=== PATIENT | male | born 1985 | race Caucasian/White ===

== ENCOUNTER → 2020-12-31 12:01 | Outpatient (CLI) | payer OTHER, SELFPAY | PROVIDERS: PCP Student in an Organized Health Care Education/Training Program; Visit Provider Nurse Practitioner | DX: S91.109A Unspecified open wound of unspecified toe(s) without damage to nail, initial encounter (principal); X58.XXXA Exposure to other specified factors, initial encounter | CPT/HCPCS: 87070; 87075; 87077; 87147; 87205 ==

== ENCOUNTER → 2020-12-31 12:14 | Outpatient (CLI) | payer OTHER, SELFPAY ==
--- NOTE | 2020-12-31 12:18 | DI.RAD.S_ITS ---
PROCEDURE: XR TOE RT MIN 2V INDICATIONS: R 1st toe wound, r/o osteomyelitis TECHNIQUE: 3 views of the great toe(s) acquired. COMPARISON: None. FINDINGS: Bones: No fractures or dislocations. No suspicious bony lesions. Soft tissues: Soft tissue wound or ulcer at the medial aspect the distal aspect of the great toe. No soft tissue gas. IMPRESSION: Toe wound or ulcer without plain film evidence of osteomyelitis. Dictated by: Alfred Hanna M.D. on 12/31/2020 at 11:57 Approved by: Alfred Hanna M.D. on 12/31/2020 at 11:58
== END ==
PROVIDERS: PCP Student in an Organized Health Care Education/Training Program; Referring Provider Nurse Practitioner; Visit Provider Nurse Practitioner
DX: S91.101A Unspecified open wound of right great toe without damage to nail, initial encounter (principal); X58.XXXA Exposure to other specified factors, initial encounter
CPT/HCPCS: 73660; 87070; 87077; 87147; 87186; 87205

== ENCOUNTER → 2021-01-01 09:47 | Outpatient (CLI) | payer OTHER, SELFPAY ==
[2021-01-01 10:07] LABS: Add Manual Diff / Slide Review NO; Basophils Absolute Auto 100 /uL (0-100); Basophils Percent Auto 0.8 % (0-2); Eosinophils Absolute Auto 300 /uL (0-450); Eosinophils Percent Auto 3.2 % (2-4); Hematocrit 49.4 % (41-53); Lymphocytes Absolute Auto 2200 /uL (1100-4500); Lymphocytes Percent Auto 23.9 % (25-40); Mean Corpuscular HGB Conc 34.5 % (30-36); Mean Corpuscular Hemoglobin 28.4 PG (26-34); Mean Corpuscular Volume 82.4 fL (80-100); Monocytes Absolute Auto 1000 /uL (0-900); Monocytes Percent Auto 11.3 % (3-14); Neutrophils Absolute Auto 5600 /uL (1500-7000); Neutrophils Percent Auto 60.8 % (50-75); Platelet Count 272 X10^3/uL (150-400); Red Blood Cell Count 5.99 X10^6/uL (4.5-5.9); Red Cell Distribution Width 13.9 % (11.6-14.8); White Blood Cell Count 9.2 X10^3/uL (4.5-11.0)
[2021-01-01 10:21] LABS: Alanine Aminotransferase 45 IU/L (<50); Albumin 4.2 g/dL (3.5-5.0); Albumin Globulin Ratio 1.1 (1.0-2.8); Alkaline Phosphatase 102 U/L (38-126); Aspartate Aminotransferase 38 IU/L (17-59); BUN Creatinine Ratio 21.1 (6-22); Bilirubin Total 0.7 mg/dL (0.2-1.3); Blood Urea Nitrogen 12 mg/dL (9-20); C-Reactive Protein Quant 4.3 mg/dL (<1.0); Carbon Dioxide 31 mmol/L (22-32); Chloride 96 mmol/L (98-107); Estimated Glomerular Filt Rate > 60.0 mL/min (>60); Globulin 3.7 g/dL (1.7-4.1); Glucose 437 mg/dL (70-100); HEMOLYSIS 22 (0-50); Potassium 5.2 mmol/L (3.4-5.1); Sodium 132 mmol/L (137-145); Total Protein 7.9 g/dL (6.3-8.2)
[2021-01-01 10:26] LABS: Erythrocyte Sedimentation Rate 3 MM/HR (0-15)
[2021-01-02 09:17] LABS: Hemoglobin A1C% w Est Avg Glu 13.2 % (4.0-6.0)
== END ==
PROVIDERS: PCP Student in an Organized Health Care Education/Training Program; Referring Provider Nurse Practitioner; Visit Provider Nurse Practitioner
DX: S91.109A Unspecified open wound of unspecified toe(s) without damage to nail, initial encounter (principal); R73.9 Hyperglycemia, unspecified
CPT/HCPCS: 36415; 80053; 83036; 84145; 85025; 85651; 86140

== ENCOUNTER → 2021-01-08 15:09 | Outpatient (CLI) | payer OTHER, SELFPAY ==
[2021-01-08 16:20] LABS: Creatinine Urine Random 78.9 mg/dL
[2021-01-08 16:55] LABS: Microalbumi Creatinin Ratio Ur 1036.7 ug/mg CR (<30); Microalbumin Urine Random 81.8 mg/dL (0-1.6)
== END ==
PROVIDERS: PCP Student in an Organized Health Care Education/Training Program; Referring Provider Student in an Organized Health Care Education/Training Program; Visit Provider Student in an Organized Health Care Education/Training Program
DX: E11.9 Type 2 diabetes mellitus without complications (principal)
CPT/HCPCS: 82043; 82570

== ENCOUNTER → 2021-01-09 13:52 | Outpatient (CLI) | payer OTHER, SELFPAY | PROVIDERS: PCP Student in an Organized Health Care Education/Training Program; Referring Provider Nurse Practitioner; Visit Provider Family Medicine | DX: E11.621 Type 2 diabetes mellitus with foot ulcer (principal); L97.511 Non-pressure chronic ulcer of other part of right foot limited to breakdown of skin; E11.65 Type 2 diabetes mellitus with hyperglycemia; E11.40 Type 2 diabetes mellitus with diabetic neuropathy, unspecified; F17.200 Nicotine dependence, unspecified, uncomplicated | CPT/HCPCS: 11042; 99204; 99212 ==

== ENCOUNTER → 2021-01-11 13:27 | Outpatient (CLI) | payer OTHER, SELFPAY | PROVIDERS: PCP Student in an Organized Health Care Education/Training Program; Referring Provider Student in an Organized Health Care Education/Training Program; Visit Provider Family Medicine | DX: E11.621 Type 2 diabetes mellitus with foot ulcer (principal); L97.511 Non-pressure chronic ulcer of other part of right foot limited to breakdown of skin; E11.40 Type 2 diabetes mellitus with diabetic neuropathy, unspecified; F17.200 Nicotine dependence, unspecified, uncomplicated | CPT/HCPCS: 29445 ==

== ENCOUNTER → 2021-01-18 08:48 | Outpatient (CLI) | payer OTHER, SELFPAY | PROVIDERS: PCP Student in an Organized Health Care Education/Training Program; Referring Provider Student in an Organized Health Care Education/Training Program; Visit Provider Family Medicine | DX: E11.621 Type 2 diabetes mellitus with foot ulcer (principal); L97.511 Non-pressure chronic ulcer of other part of right foot limited to breakdown of skin; E11.40 Type 2 diabetes mellitus with diabetic neuropathy, unspecified; F17.200 Nicotine dependence, unspecified, uncomplicated | CPT/HCPCS: 29445 ==

== ENCOUNTER → 2021-01-25 08:55 | Outpatient (CLI) | payer OTHER, SELFPAY | PROVIDERS: PCP Student in an Organized Health Care Education/Training Program; Referring Provider Student in an Organized Health Care Education/Training Program; Visit Provider Family Medicine | DX: E11.621 Type 2 diabetes mellitus with foot ulcer (principal); L97.511 Non-pressure chronic ulcer of other part of right foot limited to breakdown of skin | CPT/HCPCS: 29445 ==

== ENCOUNTER → 2021-02-01 09:30 | Outpatient (CLI) | payer OTHER, SELFPAY | PROVIDERS: PCP Student in an Organized Health Care Education/Training Program; Referring Provider Student in an Organized Health Care Education/Training Program; Visit Provider Family Medicine | DX: Z86.31 Personal history of diabetic foot ulcer (principal); E11.65 Type 2 diabetes mellitus with hyperglycemia; E11.40 Type 2 diabetes mellitus with diabetic neuropathy, unspecified | CPT/HCPCS: 99213 ==

== ENCOUNTER → 2021-02-16 | Outpatient (CLI) | payer OTHER, SELFPAY | PROVIDERS: PCP Student in an Organized Health Care Education/Training Program; Referring Provider Student in an Organized Health Care Education/Training Program; Visit Provider Family Medicine | CPT/HCPCS: 99212 ==

== ENCOUNTER → 2021-02-22 15:06 | Outpatient (CLI) | payer OTHER, SELFPAY | PROVIDERS: PCP Student in an Organized Health Care Education/Training Program; Referring Provider Student in an Organized Health Care Education/Training Program; Visit Provider Nurse Practitioner Family | DX: Z86.32 Personal history of gestational diabetes (principal); E11.40 Type 2 diabetes mellitus with diabetic neuropathy, unspecified | CPT/HCPCS: 99213 ==

== ENCOUNTER → 2021-04-11 06:53 | Outpatient (CLI) | payer OTHER, SELFPAY ==
[2021-04-11 07:56] LABS: Hemoglobin A1C% w Est Avg Glu 10.2 % (4.0-6.0)
[2021-04-11 08:47] LABS: Blood Urea Nitrogen 18 mg/dL (9-20); Estimated Glomerular Filt Rate > 60.0 mL/min (>60)
== END ==
PROVIDERS: PCP Student in an Organized Health Care Education/Training Program; Referring Provider Student in an Organized Health Care Education/Training Program; Visit Provider Student in an Organized Health Care Education/Training Program
DX: E11.29 Type 2 diabetes mellitus with other diabetic kidney complication (principal); R80.9 Proteinuria, unspecified
CPT/HCPCS: 36415; 82565; 83036; 84520

== ENCOUNTER → 2021-08-29 06:53 | Outpatient (CLI) | payer OTHER, SELFPAY ==
[2021-08-29 08:21] LABS: Hemoglobin A1C% w Est Avg Glu 7.1 % (4.0-6.0)
[2021-08-29 08:22] LABS: BUN Creatinine Ratio 24.3 (6-22); Blood Urea Nitrogen 18 mg/dL (9-20); Cholesterol 159 mg/dL (140-199); Estimated Glomerular Filt Rate > 60.0 mL/min (>60); HDL Cholesterol 39 mg/dL (40-60); LDL Cholesterol Calculated 61 mg/dL (<100); Triglycerides 297 mg/dL (35-150)
[2021-08-29 09:22] LABS: Creatinine Urine Random 215.1 mg/dL
[2021-08-29 12:50] LABS: Microalbumi Creatinin Ratio Ur 161.7 ug/mg CR (<30); Microalbumin Urine Random 34.8 mg/dL (0-1.6)
== END ==
PROVIDERS: PCP Student in an Organized Health Care Education/Training Program; Referring Provider Student in an Organized Health Care Education/Training Program; Visit Provider Student in an Organized Health Care Education/Training Program
DX: E11.69 Type 2 diabetes mellitus with other specified complication (principal); E78.5 Hyperlipidemia, unspecified; I10 Essential (primary) hypertension
CPT/HCPCS: 36415; 80061; 82043; 82565; 82570; 83036; 84520

== ENCOUNTER → 2022-03-11 11:12 | Outpatient (CLI) | payer OTHER, SELFPAY ==
[2022-03-11 13:03] LABS: Hemoglobin A1C% w Est Avg Glu 8.3 % (4.0-6.0)
[2022-03-11 13:18] LABS: BUN Creatinine Ratio 19.2 (6-22); Blood Urea Nitrogen 14 mg/dL (9-20); Calcium 8.9 mg/dL (8.4-10.2); Carbon Dioxide 27 mmol/L (22-32); Chloride 103 mmol/L (98-107); Estimated Glomerular Filt Rate > 60 mL/min (>60); Glucose 135 mg/dL (70-100); HEMOLYSIS < 15 (0-50); Sodium 138 mmol/L (137-145)
== END ==
PROVIDERS: PCP Student in an Organized Health Care Education/Training Program; Referring Provider Student in an Organized Health Care Education/Training Program; Visit Provider Student in an Organized Health Care Education/Training Program
DX: E11.29 Type 2 diabetes mellitus with other diabetic kidney complication (principal); R80.9 Proteinuria, unspecified; I10 Essential (primary) hypertension
CPT/HCPCS: 36415; 80048; 83036

== ENCOUNTER → 2022-05-07 08:30 | Outpatient (CLI) | payer OTHER, SELFPAY | LOC: WC 08:32 | PROVIDERS: PCP Student in an Organized Health Care Education/Training Program; Referring Provider Student in an Organized Health Care Education/Training Program; Visit Provider Family Medicine | DX: E11.621 Type 2 diabetes mellitus with foot ulcer (principal); L97.512 Non-pressure chronic ulcer of other part of right foot with fat layer exposed; L84 Corns and callosities; L08.9 Local infection of the skin and subcutaneous tissue, unspecified; E11.40 Type 2 diabetes mellitus with diabetic neuropathy, unspecified; Z79.84 Long term (current) use of oral hypoglycemic drugs; Z72.0 Tobacco use | CPT/HCPCS: 11042; 87070; 87075; 87077; 87186; 87205; 93922; 99214 ==

== ENCOUNTER → 2022-05-14 08:59 | Outpatient (CLI) | payer OTHER, SELFPAY | PROVIDERS: PCP Student in an Organized Health Care Education/Training Program; Referring Provider Student in an Organized Health Care Education/Training Program; Visit Provider Family Medicine | DX: L84 Corns and callosities (principal); E11.40 Type 2 diabetes mellitus with diabetic neuropathy, unspecified; Z86.31 Personal history of diabetic foot ulcer | CPT/HCPCS: 99212; 99213 ==

== ENCOUNTER → 2022-06-07 06:53 | Outpatient (CLI) | payer OTHER, SELFPAY ==
[2022-06-07 08:31] LABS: BUN Creatinine Ratio 22.9 (6-22); Blood Urea Nitrogen 19 mg/dL (9-20); Estimated Glomerular Filt Rate > 60 mL/min (>60)
[2022-06-07 08:48] LABS: Hemoglobin A1C% w Est Avg Glu 7.2 % (4.0-6.0)
[2022-06-07 13:00] LABS: Creatinine Urine Random 197.5 mg/dL; Microalbumin Urine Random 16.2 mg/dL (0-1.6)
== END ==
PROVIDERS: PCP Student in an Organized Health Care Education/Training Program; Referring Provider Student in an Organized Health Care Education/Training Program; Visit Provider Student in an Organized Health Care Education/Training Program
DX: E11.29 Type 2 diabetes mellitus with other diabetic kidney complication (principal); R80.9 Proteinuria, unspecified
CPT/HCPCS: 36415; 82043; 82565; 82570; 83036; 84520

== ENCOUNTER 2022-10-14 15:54 | Emergency (ER) | payer OTHER, SELFPAY ==
[2022-10-14] VITALS (11 sets, daily range): BP systolic 131–142; BP diastolic 64–84; PULSE 77–90; RESP 16; TEMP 36.8; O2SAT 94–98; BMI 39.4
[2022-10-14 16:53] LABS: Add Manual Diff / Slide Review NO; Basophils Absolute Auto 100 /uL (0-100); Basophils Percent Auto 0.9 % (0-2); Eosinophils Absolute Auto 900 /uL (0-450); Eosinophils Percent Auto 5.1 % (2-4); Hematocrit 43.5 % (41-53); Hemoglobin 14.4 g/dL (13.5-17.5); Lymphocytes Absolute Auto 4000 /uL (1100-4500); Lymphocytes Percent Auto 24.1 % (25-40); Mean Corpuscular HGB Conc 33.2 % (30-36); Mean Corpuscular Hemoglobin 27.8 PG (26-34); Mean Corpuscular Volume 83.8 fL (80-100); Monocytes Absolute Auto 1400 /uL (0-900); Monocytes Percent Auto 8.6 % (3-14); Neutrophils Absolute Auto 10300 /uL (1500-7000); Neutrophils Percent Auto 61.3 % (50-75); Platelet Count 376 X10^3/uL (150-400); Red Cell Distribution Width 13.9 % (11.6-14.8); White Blood Cell Count 16.8 X10^3/uL (4.5-11.0)
[2022-10-14 17:03] LABS: Alanine Aminotransferase 29 IU/L (<50); Albumin 4.3 g/dL (3.5-5.0); Albumin Globulin Ratio 1.1 (1.0-2.8); Alkaline Phosphatase 69 U/L (38-126); Aspartate Aminotransferase 23 IU/L (17-59); Bilirubin Total 0.9 mg/dL (0.2-1.3); Blood Urea Nitrogen 18 mg/dL (9-20); Calcium 9.1 mg/dL (8.4-10.2); Carbon Dioxide 25 mmol/L (22-32); Chloride 102 mmol/L (98-107); Estimated Glomerular Filt Rate > 60 mL/min (>60); Globulin 3.8 g/dL (1.7-4.1); Glucose 111 mg/dL (70-100); Lipase 1037 U/L (23-300); Potassium 4.3 mmol/L (3.4-5.1); Sodium 138 mmol/L (137-145); Total Protein 8.1 g/dL (6.3-8.2)
[2022-10-14 17:04] LABS: HEMOLYSIS 51 (0-50)
--- NOTE | 2022-10-14 18:39 | ED.ABDPAIN ---
HPI - Abdominal Pain General Chief Complaint: Abdominal Pain Stated Complaint: ABD pain Time Seen by Provider: 10/14/22 18:38 Source: patient Mode of arrival: Ambulatory History of Present Illness HPI narrative: 36-year-old male daily smoker with type 2 diabetes and hypertension presents with his significant other and a chief complaint of severe epigastric pain for the past few days. He states he was in his normal state of health until Friday evening when he started developing this pain which now radiates to his back. He states it is worse when eating or drinking as well as when he moves. He is had a few episodes of vomiting but displays no role in how he is feeling otherwise. He denies any fever or chills and has had no complaint of any jaundice. He is had no constipation or diarrhea and denies urinary complaints such as dysuria, frequency or urgency. He states he does not drink at all and denies any recent dietary change. Related Data Home Medications Medication Instructions Recorded Confirmed aspirin 81 mg tablet,delayed 81 mg PO DAILY 01/08/21 06/10/22 release Previous Rx's Medication Instructions Recorded blood sugar diagnostic (Blood #100 ea 01/18/21 Glucose Test strips) blood-glucose meter #1 ea 01/18/21 lancets (Comfort Lancets) #100 ea 01/18/21 lisinopril 20 mg tablet 20 mg PO DAILY #90 tabs 03/11/22 atorvastatin 20 mg tablet 20 mg PO BEDTIME #90 tabs 05/06/22 glipizide 10 mg tablet, extended 10 mg PO DAILY #90 tabs 06/10/22 release 24 hr metformin 1,000 mg tablet 1,000 mg PO BID #180 tabs 06/10/22 hydrocodone 5 mg-acetaminophen 325 1 tab PO Q4-6H PRN pain #10 tabs 10/14/22 mg tablet ondansetron 4 mg disintegrating 4 mg PO TID-QID PRN nausea and 10/14/22 tablet vomiting #10 tabs Allergies Allergy/AdvReac Type Severity Reaction Status Date / Time No Known Drug Allergies Allergy Verified 06/10/22 09:13 Review of Systems Review of Systems Narrative: GENERAL: Denies chills, fatigue, malaise, fever, sweats. HEENT: Denies sinus pain, ear pain, sore throat, difficulty swallowing, dizziness. RESPIRATORY: Denies dyspnea, cough, wheezing, hemoptysis, sputum. CARDIOVASCULAR: Denies chest pain, palpitations, orthopnea, edema, GASTROINTESTINAL: See HPI : Denies dysuria, frequency, incontinence, hematuria, urinary retention. MUSCULOSKELETAL: denies weakness, joint pain, or bony pain SKIN: Denies rash, skin lesions, or other NEUROLOGIC: Denies weakness, headache, numbness, change in speech, confusion, seizures, incoordination. PSYCHIATRIC: No concerning psychosocial issues. 12 point review of systems is negative except for those stated above Patient History Social History Smoking Status: Current every day smoker Smoking Status: Current every day smoker Substance Use Type: marijuana Exam Narrative Exam Narrative: GENERAL: [36] year old patient appears stated age. Well-developed patient, in mild distress. HEAD: Atraumatic. Normocephalic. EYES: Pupils equal round and reactive. Extraocular motions intact. No scleral icterus. No injection or drainage. ENT: Nose without bleeding, purulent drainage. Throat without erythema, tonsillar hypertrophy or exudate. Airway patent. NECK: Trachea midline. Non tender CARDIOVASCULAR: Regular rate and rhythm without murmurs, gallops, or rubs. RESPIRATORY: Clear to auscultation. Breath sounds equal bilaterally. No wheezes, rales, or rhonchi. GASTROINTESTINAL: Abdomen soft, tenderness in the epigastrium nondistended. Bowel sounds present in all 4 quadrants EXTREMITIES: No edema or joint tenderness. BACK: Nontender without deformity or crepitance. No flank tenderness. NEURO: AOx3. SKIN: No rash or erythema of visible areas Initial Vital Signs Initial Vital Signs: Vital Signs Temperature 98.2 F 10/14/22 16:19 Pulse Rate 90 10/14/22 16:19 Respiratory Rate 16 10/14/22 16:19 Blood Pressure 134/84 10/14/22 16:19 Pulse Oximetry 98 10/14/22 16:19 Oxygen Delivery Method 10/14/22 16:19 Course Orders Ordered: Discontinued Medications Hydrocodone Bitart/Acetaminophen (Hydrocodone/Acet 5/325 Prepack) 1 bottle MISC SEEINSTR ONE Stop: 10/14/22 21:47 Last Admin: 10/14/22 21:54 Dose: 1 bottle Documented By: JESSE Hydromorphone HCl (Hydromorphone 0.5 Mg Inj) 0.5 mg IV NOW ONE Stop: 10/14/22 20:01 Last Admin: 10/14/22 20:09 Dose: 0.5 mg Documented By: JESSE Sodium Chloride (Normal Saline 0.9%) 1,000 mls @ 1,000 mls/hr IV BOLUS ONE Stop: 10/14/22 19:36 Last Infusion: 10/14/22 20:01 Dose: 0 mls/hr Documented By: Admin: 10/14/22 18:46 Dose: 1,000 mls/hr Documented By: JUSTIN Sodium Chloride (Normal Saline 0.9%) 1,000 mls @ 1,000 mls/hr IV BOLUS ONE Stop: 10/14/22 20:59 Last Infusion: 10/14/22 22:00 Dose: 0 mls/hr Documented By: Admin: 10/14/22 20:08 Dose: 1,000 mls/hr Documented By: JESSE Ondansetron HCl (Ondansetron 4 Mg/2 Ml Inj) 4 mg IV NOW ONE Stop: 10/14/22 20:01 Last Admin: 10/14/22 20:08 Dose: 4 mg Documented By: JESSE Ondansetron HCl (Ondansetron 4 Mg Odt Prepack) 1 bottle MISC SEEINSTR ONE Stop: 10/14/22 21:47 Last Admin: 10/14/22 21:54 Dose: 1 bottle Documented By: JESSE Vital Signs Vital signs: Vital Signs - 8 hr 10/14/22 16:19 10/14/22 18:44 10/14/22 18:45 Temperature 98.2 F Pulse Rate 90 84 87 Respiratory Rate 16 Blood Pressure 134/84 Pulse Oximetry 98 97 97 Oxygen Delivery Method Room Air 10/14/22 18:45 10/14/22 19:00 10/14/22 19:00 Temperature Pulse Rate 78 Respiratory Rate Blood Pressure 136/75 131/69 Pulse Oximetry 96 Oxygen Delivery Method 10/14/22 19:30 10/14/22 19:30 10/14/22 20:00 Temperature Pulse Rate 79 78 Respiratory Rate Blood Pressure 133/68 Pulse Oximetry 95 96 Oxygen Delivery Method 10/14/22 20:01 10/14/22 20:01 10/14/22 20:25 Temperature Pulse Rate 79 Respiratory Rate Blood Pressure 133/76 142/72 H Pulse Oximetry 96 Oxygen Delivery Method 10/14/22 20:25 Temperature Pulse Rate 85 Respiratory Rate Blood Pressure Pulse Oximetry 94 Oxygen Delivery Method MDM - Abdominal Pain Lab Data Result diagrams: 10/14/22 16:36 10/14/22 16:36 Labs: Lab Results 10/14/22 10/14/22 10/14/22 Range/Units 16:36 16:36 18:47 WBC 16.8 H (4.5-11.0) X10^3/uL RBC 5.20 (4.5-5.9) X10^6/uL Hgb 14.4 (13.5-17.5) g/dL Hct 43.5 (41-53) % MCV 83.8 (80-100) fL MCH 27.8 (26-34) PG MCHC 33.2 (30-36) % RDW 13.9 (11.6-14.8) % Plt Count 376 (150-400) X10^3/uL Neut % (Auto) 61.3 (50-75) % Lymph % (Auto) 24.1 L (25-40) % Yates % (Auto) 8.6 (3-14) % Eos % (Auto) 5.1 H (2-4) % Baso % (Auto) 0.9 (0-2) % Neut # (Auto) 32707 H (4022-8893) /uL Lymph # (Auto) 4000 (9774-7856) /uL Yates # (Auto) 1400 H (0-900) /uL Eos # (Auto) 900 H (0-450) /uL Baso # (Auto) 100 (0-100) /uL Sodium 138 (137-145) mmol/L Potassium 4.3 (3.4-5.1) mmol/L Chloride 102 (98-107) mmol/L Carbon Dioxide 25 (22-32) mmol/L BUN 18 (9-20) mg/dL Creatinine 0.60 L (0.66-1.25) mg/dL Estimated GFR > 60 (>60) mL/min BUN/Creatinine Ratio 30.0 H (6-22) Glucose 111 H (70-100) mg/dL Calcium 9.1 (8.4-10.2) mg/dL Total Bilirubin 0.9 (0.2-1.3) mg/dL AST 23 (17-59) IU/L ALT 29 (<50) IU/L Alkaline Phosphatase 69 (38-126) U/L Total Protein 8.1 (6.3-8.2) g/dL Albumin 4.3 (3.5-5.0) g/dL Globulin 3.8 (1.7-4.1) g/dL Albumin/Globulin Ratio 1.1 (1.0-2.8) Lipase 1037 H (23-300) U/L SARS-CoV-2 (PCR) Negative (Negative) MDM Narrative Medical decision making narrative: [36-year-old male with history of diabetes and hyperlipidemia presents with epigastric pain and radiation to his back] Multiple etiologies for patient's symptoms considered including, but not limited to: [Gallbladder disease, pancreatitis, bowel obstruction versus other] Labs reviewed and interpreted by myself: Lipase noted to be significantly elevated, consistent with pancreatitis, otherwise no significant abnormal findings Imaging reviewed: Abdominal ultrasound obtained and limited exam, CT consistent with pancreatitis. No evidence of abscess, pseudocyst or gallbladder disease Patient's symptoms improved over duration of stay with above-stated therapies. Patient's pain is well tolerated and he is tolerating oral hydration Findings and discharge diagnosis discussed with patient/family followed by verbalization of understanding Return precautions discussed with patient/family whom verbalize understanding of diagnosis and plan Discharge Plan Departure Patient Disposition: Home Clinical Impression: Pancreatitis Instructions: DI for Pancreatitis Activity Restrictions/Additional Instructions: *You have been diagnosed with [pancreatitis] *What to do: *Please continue to take your regular medications as directed. [x ] New medication prescriptions sent to your pharmacy: [[facility] [place]] *Please follow up with your primary care provider in 2-3 days, call for an appointment. Let them know you were seen in the Emergency Department and that we ask that you be seen in follow up. We will electronically transmit a record of today's note if your PCP is in our system *Please consider a clear liquid diet for the next 48-72 hours and then slowly advance to regular as tolerated. Also, try to avoid alcohol, nicotine, caffeine, spicy, acidic or fatty foods as this may worsen your symptoms *If you do not have a primary care provider please contact the [facility] Resource line at [phone]. They will ask some questions about your medical history and help get you set up with a doctor in the community. *Return to Emergency Department if you should have any new, worsening or concerning symptoms, such as [fever greater than 101 F, shaking chills, worsening pain, persistent vomiting or other bothersome symptoms] You have been prescribed a short course of narcotic medications. These are potentially dangerous and addictive medications that should be used carefully. While on these medications you cannot drive or operate heavy machinery. Additionally, you cannot sign legal documents or perform any duties such as this. Many people get constipated on narcotic medications so it would be advisable to discuss stool softeners with the pharmacist when you pick pack worker your prescription. Please understand that we cannot provide further refills of narcotics or controlled substances through the ED and your pain management will need to be through your Primary Care Provider Prescriptions: New hydrocodone-acetaminophen 5-325 mg tablet 1 tab PO Q4-6H PRN (Reason: pain) Qty: 10 0RF ondansetron 4 mg tablet,disintegrating 4 mg PO TID-QID PRN (Reason: nausea and vomiting) Qty: 10 0RF No Action (DME) blood-glucose meter Misc See Rx Instructions .ROUTE .MEDSUPPLY Qty: 1 0RF Rx Instructions: Use to check blood sugar at least once daily (DME) Blood Glucose Test Strip See Rx Instructions .ROUTE .MEDSUPPLY Qty: 100 0RF Rx Instructions: Use to check blood sugar at least once daily (DME) lancets [Comfort Lancets] Misc See Rx Instructions .ROUTE .MEDSUPPLY Qty: 100 0RF Rx Instructions: As directed atorvastatin 20 mg tablet 20 mg PO BEDTIME Qty: 90 3RF metformin 1,000 mg tablet 1,000 mg PO BID Qty: 180 1RF Rx Instructions: w/Meals. lisinopril 20 mg tablet 20 mg PO DAILY Qty: 90 3RF glipizide 10 mg tablet extended release 24hr 10 mg PO DAILY Qty: 90 1RF aspirin 81 mg tablet,delayed release (DR/EC) 81 mg PO DAILY Referrals: Tim Tyler MD [Primary Care Provider] - Visit Report Forms: Patient Portal/API
[2022-10-14] MEDS: SODIUM CHLORIDE 0.9% 1,000 ML 1000 ML IV ×2 (18:46→20:08)
[2022-10-14 19:12] LABS: COVID19 -Nasal RAPID Negative (Negative)
--- NOTE | 2022-10-14 19:34 | DI.US.S_ITS ---
PROCEDURE: US ABDOMEN LIMITED INDICATIONS: SEVERE EPIGASTRIC PAIN. LIPASE >1000. TECHNIQUE: Real-time focused scanning was performed of the abdomen, with image documentation. COMPARISON: [facility], CT, CT ABDOMEN PELVIS W CON, 10/14/2022, 20:39. FINDINGS: Liver is enlarged with steatosis. Gallbladder demonstrates no stones. Wall thickness is normal measuring 2.5 mm. IMPRESSION: Hepatomegaly with steatosis. Dictated by: Lorenza Tobar M.D. on 10/14/2022 at 21:10 Approved by: Lorenza Tobar M.D. on 10/14/2022 at 21:10
[2022-10-14] MEDS: ONDANSETRON 4 MG/2 ML INJ IV (20:08)
[2022-10-14] MEDS: HYDROMORPHONE 0.5 MG INJ IV (20:09)
--- NOTE | 2022-10-14 20:27 | DI.CT.S_ITS ---
PROCEDURE: CT ABDOMEN PELVIS W CON INDICATIONS: severe epigastric pain TECHNIQUE: After the administration of IV contrast, axial sections were acquired from the lung bases to the pubic symphysis. Coronal and sagittal reformats were performed. For radiation dose reduction, the following was used: automated exposure control, adjustment of mA and/or kV according to patient size. COMPARISON: [facility], , ABDOMEN LIMITED, 10/14/2022, 20:13. FINDINGS: Image quality: Excellent. Lung bases: Unremarkable. Heart: No significant findings. ABDOMEN: Liver: Liver is enlarged measuring 22.7 cm with diffuse steatosis. Gallbladder: Unremarkable. Biliary ducts: Unremarkable. Pancreas: There is a slight appearance of peripancreatic edema. No ductal dilation. There is homogeneous pancreatic enhancement. No localized fluid collection. Spleen: Unremarkable. Adrenal Glands: Unremarkable. Kidneys and Ureters: Unremarkable. Stomach and Bowel: Stomach, small bowel loops, and colon are unremarkable. Peritoneum: No abnormal intraperitoneal fluid. No free air. Ventral Wall: No hernia. Abdominal Nodes: No retroperitoneal or mesenteric adenopathy by size criteria. Vessels: Aorta and inferior vena cava are normal in size. PELVIS: Pelvic Organs: Unremarkable. Bladder: Unremarkable. Pelvic Nodes: No enlarged lymph nodes. Miscellaneous: Bilateral fat containing inguinal hernias are present. Bones: Unremarkable. IMPRESSION: Mild appearance of peripancreatic inflammatory change suggestive of pancreatitis. No ductal dilation or evidence of necrotizing pancreatitis. No focal fluid collection. Recommend correlation with laboratory enzyme levels. Dictated by: Lorenza Tobar M.D. on 10/14/2022 at 21:08 Approved by: Lorenza Tobar M.D. on 10/14/2022 at 21:10
[2022-10-14] MEDS: ONDANSETRON 4 MG ODT PREPACK 1 BOTTLE MISC (21:54)
[2022-10-14] MEDS: HYDROCODONE/ACET 5/325 PREPACK 1 BOTTLE MISC (21:54)
== END 2022-10-14 22:04 | disposition home or self-care (01) ==
PROVIDERS: Emergency Medicine; Emergency Provider Emergency Medicine; PCP Student in an Organized Health Care Education/Training Program
DX: K85.90 Acute pancreatitis without necrosis or infection, unspecified (principal); R10.13 Epigastric pain; Z79.899 Other long term (current) drug therapy; Z20.822 Contact with and (suspected) exposure to COVID-19
CPT/HCPCS: 36415; 74177; 76705; 80053; 83690; 85025; 87635; 93005; 96361; 96374; 96375; 99284; C9803; J1170; J2405; Q9967

== ENCOUNTER → 2022-12-19 16:02 | Outpatient (CLI) | payer OTHER, SELFPAY ==
[2022-12-19 16:42] LABS: Cholesterol 151 mg/dL (140-199); HDL Cholesterol 36 mg/dL (40-60); Hemoglobin A1C% w Est Avg Glu 7.5 % (4.0-6.0); LDL Cholesterol Calculated 48 mg/dL (<100); Triglycerides 336 mg/dL (35-150)
[2022-12-19 17:12] LABS: Creatinine Urine Random 185.9 mg/dL
[2022-12-19 17:17] LABS: Microalbumi Creatinin Ratio Ur 87.1 ug/mg CR (<30); Microalbumin Urine Random 16.2 mg/dL (0-1.6)
== END ==
PROVIDERS: PCP Student in an Organized Health Care Education/Training Program; Referring Provider Student in an Organized Health Care Education/Training Program; Visit Provider Student in an Organized Health Care Education/Training Program
DX: E11.29 Type 2 diabetes mellitus with other diabetic kidney complication (principal); E11.69 Type 2 diabetes mellitus with other specified complication; E78.5 Hyperlipidemia, unspecified; I10 Essential (primary) hypertension; R80.9 Proteinuria, unspecified
CPT/HCPCS: 36415; 80061; 82043; 82570; 83036

== ENCOUNTER 2023-08-20 18:39 | Emergency (ER) | payer OTHER, SELFPAY ==
[2023-08-20 18:44] VITALS: BP 146/89; PULSE 93; RESP 16; TEMP 36.4; O2SAT 97; BMI 37.5
--- NOTE | 2023-08-20 18:50 | ED.GENADULT ---
HPI - General Adult General Chief complaint: Skin/Abscess/Foreign Body Stated complaint: Great toe Right infection Time Seen by Provider: 08/20/23 18:45 Source: patient Mode of arrival: Ambulatory Limitations: no limitations History of Present Illness HPI narrative: Patient is a 37-year-old male. Is a [id number] diabetic. History of hypertension. Is here for evaluation of a wound on his right great toe. He states he has had this wound in the past. It was a couple years ago. He was seen by wound care. Was on antibiotics. The wound seemed to improve. Over the past several weeks if not slightly longer the wound has started to return. Last evening it was stepped on by a family member and since that time he is had quite a bit of discomfort. He denies any fevers. Related Data Home Medications Medication Instructions Recorded Confirmed aspirin 81 mg tablet,delayed 81 mg PO DAILY 01/08/21 05/09/23 release Previous Rx's Medication Instructions Recorded blood sugar diagnostic (Blood #100 ea 01/18/21 Glucose Test strips) blood-glucose meter #1 ea 01/18/21 lancets (Comfort Lancets) #100 ea 01/18/21 lisinopril 20 mg tablet 20 mg PO DAILY #90 tabs 03/14/23 atorvastatin 20 mg tablet 20 mg PO BEDTIME #90 tabs 05/20/23 metformin 1,000 mg tablet 1,000 mg PO BID #180 tabs 06/18/23 glipizide 10 mg tablet, extended 10 mg PO DAILY #90 tabs 07/08/23 release 24 hr ciprofloxacin HCl 500 mg tablet 500 mg PO Q12H 10 days #20 tabs 08/20/23 (Cipro) Allergies Allergy/AdvReac Type Severity Reaction Status Date / Time No Known Drug Allergies Allergy Verified 05/09/23 16:34 Review of Systems Constitutional Constitutional: Reports system reviewed and no additional complaints, except as documented Musculoskeletal Musculoskeletal: Reports system reviewed and no additional complaints, except as documented Integumentary/Breasts Skin/Breast: Reports system reviewed and no additional complaints, except as documented Neurologic Neurologic: Reports system reviewed and no additional complaints, except as documented Hematologic/Lymphatic On Anticoagulants: No Patient History Medical History (Updated 08/20/23 @ 20:00 by Leo Gil DO) Hyperlipidemia associated with type 2 diabetes mellitus Type 2 diabetes mellitus Essential hypertension Morbid obesity (03/29/03) Attention deficit disorder with hyperactivity (03/29/03) Social History Smoking Status: Current every day smoker Smoking Status: Current every day smoker Substance Use Type: marijuana Exam Initial Vital Signs Initial Vital Signs: Vital Signs Temperature 97.6 F 08/20/23 18:44 Pulse Rate 93 H 08/20/23 18:44 Respiratory Rate 16 08/20/23 18:44 Blood Pressure 146/89 H 08/20/23 18:44 Pulse Oximetry 97 08/20/23 18:44 Oxygen Delivery Method Room Air 08/20/23 18:44 [facility] Head: normal to inspection and normocephalic Cardio Pulses: dorsalis pedis present on the right Skin Other: Patient with a 2 cm x 2 cm ulceration with another 0.5 cm area of skin breakdown on the plantar aspect of the right great toe in between the MTP joint and IP joint. There is some purulent drainage. There is a small amount of surrounding erythema. There was no bone exposure but the ulceration is through the skin into the subcutaneous tissue. Does have a foul smell to it. Neuro Other: Some decreased sensation to light touch Extrem Other: Ulceration plantar aspect of right great toe Course Orders Ordered: ED Orders 08/20/23 18:49 Wound Culture and Gram Stain Stat 08/20/23 18:50 XR foot RT min 3V Stat 08/20/23 19:10 Basic Metabolic Panel Stat C-Reactive Protein Quant Stat Complete Blood Count AUTO DIFF Stat Erythrocyte Sedimentation Rate Stat Lactate (Lactic Acid) Stat Procalcitonin Stat Discontinued Medications Ciprofloxacin (Ciprofloxacin 250 Mg Tablet) 500 mg PO NOW ONE Stop: 08/20/23 19:59 Last Admin: 08/20/23 20:02 Dose: 500 mg Documented By: DAWNA Vital Signs Vital signs: Vital Signs - 8 hr 08/20/23 18:44 08/20/23 20:05 Temperature 97.6 F Pulse Rate 93 H 90 Respiratory Rate 16 18 Blood Pressure 146/89 H 163/80 H Pulse Oximetry 97 98 Oxygen Delivery Method Room Air Medical Decision Making Lab Data Lab results reviewed: Yes I reviewed the patient's lab results. 08/20/23 19:10 08/20/23 19:10 Labs: Lab Results 08/20/23 Range/Units 19:10 WBC 14.4 H (4.5-11.0) X10^3/uL RBC 5.41 (4.5-5.9) X10^6/uL Hgb 14.7 (13.5-17.5) g/dL Hct 43.7 (41-53) % MCV 80.7 (80-100) fL MCH 27.1 (26-34) PG MCHC 33.6 (30-36) % RDW 15.0 H (11.6-14.8) % Plt Count 406 H (150-400) X10^3/uL Neut % (Auto) 69.1 (50-75) % Lymph % (Auto) 15.9 L (25-40) % [place] % (Auto) 9.8 (3-14) % Eos % (Auto) 4.5 H (2-4) % Baso % (Auto) 0.7 (0-2) % Neut # (Auto) 9900 H (3985-7988) /uL Lymph # (Auto) 2300 (1202-4670) /uL [place] # (Auto) 1400 H (0-900) /uL Eos # (Auto) 600 H (0-450) /uL Baso # (Auto) 100 (0-100) /uL ESR 1 (0-15) MM/HR Sodium 136 L (137-145) mmol/L Potassium 4.7 (3.4-5.1) mmol/L Chloride 102 (98-107) mmol/L Carbon Dioxide 28 (22-32) mmol/L BUN 21 H (9-20) mg/dL Creatinine 0.64 L (0.66-1.25) mg/dL Estimated GFR > 60 (>60) mL/min BUN/Creatinine Ratio 32.8 H (6-22) Glucose 156 H (70-100) mg/dL Lactate 1.4 (0.7-2.1) mmol/L Calcium 9.7 (8.4-10.2) mg/dL C-Reactive Protein 1.8 H (<1.0) mg/dL Procalcitonin 0.05 (<0.5) ng/mL Imaging Data Extremity x-ray #1: Radiologist's Impression: PROCEDURE: XR FOOT RT MIN 3V INDICATIONS: great toe ulceration TECHNIQUE: 3 views of the foot were acquired. COMPARISON: None. FINDINGS: Bones: No fractures or dislocations. There is a somewhat irregular appearance of the distal 1st phalanx with sclerosis at the tuft. There is a somewhat truncated irregular appearance of the distal most aspect of the tuft. Small focus of lucency are also noted, scattered within the distal phalanx. Soft tissues: No tibiotalar joint effusion. Achilles tendon appears normal. 1st digit soft tissue prominence is present. IMPRESSION: Sclerosis and lucency within the distal 1st phalanx suggestive of osteomyelitis. [facility] Narrative Medical decision making narrative: Patient has an ulceration of his right great toe that obviously has not developed over the past couple days. It is clearly been there for several weeks. It appears that he has had this issue in the past potentially many years ago that maybe has improved but is now worsening. X-ray and labs do suggest an infection. Potentially osteomyelitis. He overall appears well. Is afebrile. Is tolerating oral intake. A culture was obtained however I do feel that we should start him on antibiotics prior to the culture resulting. He understands that we may need to change these depending on the results of this. Will cover with Cipro. Given 1st dose here in the ER and a prescription was sent to the pharmacy of his choice. He was also given information for follow-up with Podiatry. Referral was also sent to wound care. Patient and his for informed to contact his primary doctor for a follow-up. He was given strict return precautions. He expressed understanding and agreement. Discharge Plan Departure Patient Disposition: Home Clinical Impression: Diabetic toe ulcer Instructions: DI for Diabetic Foot Ulcer Activity Restrictions/Additional Instructions: I do recommend that you start taking the antibiotics as directed. A wound culture was pending at the time of your discharge and we will contact you if we need to change any antibiotics. Tomorrow recommend you contact the Wound Care, your primary doctor and the central office associate at the number provided below for a follow-up. Return to the emergency department for new or worsening symptoms. Prescriptions: New ciprofloxacin HCl [Cipro] 500 mg tablet 500 mg PO Q12H 10 Days Qty: 20 0RF No Action (DME) blood-glucose meter Misc See Rx Instructions .ROUTE .MEDSUPPLY Qty: 1 0RF Rx Instructions: Use to check blood sugar at least once daily (DME) Blood Glucose Test Strip See Rx Instructions .ROUTE .MEDSUPPLY Qty: 100 0RF Rx Instructions: Use to check blood sugar at least once daily (DME) lancets [Comfort Lancets] Misc See Rx Instructions .ROUTE .MEDSUPPLY Qty: 100 0RF Rx Instructions: As directed lisinopril 20 mg tablet 20 mg PO DAILY Qty: 90 3RF atorvastatin 20 mg tablet 20 mg PO BEDTIME Qty: 90 1RF metformin 1,000 mg tablet 1,000 mg PO BID Qty: 180 1RF Rx Instructions: w/Meals. glipizide 10 mg tablet extended release 24hr 10 mg PO DAILY Qty: 90 1RF aspirin 81 mg tablet,delayed release (DR/EC) 81 mg PO DAILY Referrals: Tim Tyler MD [Primary Care Provider] - Heide Reza DPM [Physician] - Stand Alone Forms: Patient Portal/API, Work Release Note
[2023-08-20 19:23] LABS: Add Manual Diff / Slide Review NO; Basophils Absolute Auto 100 /uL (0-100); Basophils Percent Auto 0.7 % (0-2); Eosinophils Absolute Auto 600 /uL (0-450); Eosinophils Percent Auto 4.5 % (2-4); Hematocrit 43.7 % (41-53); Hemoglobin 14.7 g/dL (13.5-17.5); Lymphocytes Absolute Auto 2300 /uL (1100-4500); Lymphocytes Percent Auto 15.9 % (25-40); Mean Corpuscular HGB Conc 33.6 % (30-36); Mean Corpuscular Hemoglobin 27.1 PG (26-34); Mean Corpuscular Volume 80.7 fL (80-100); Monocytes Absolute Auto 1400 /uL (0-900); Monocytes Percent Auto 9.8 % (3-14); Neutrophils Absolute Auto 9900 /uL (1500-7000); Neutrophils Percent Auto 69.1 % (50-75); Platelet Count 406 X10^3/uL (150-400); Red Blood Cell Count 5.41 X10^6/uL (4.5-5.9); White Blood Cell Count 14.4 X10^3/uL (4.5-11.0)
[2023-08-20 19:31] LABS: Lactate (Lactic Acid) 1.4 mmol/L (0.7-2.1)
[2023-08-20 19:34] LABS: BUN Creatinine Ratio 32.8 (6-22); Blood Urea Nitrogen 21 mg/dL (9-20); C-Reactive Protein Quant 1.8 mg/dL (<1.0); Calcium 9.7 mg/dL (8.4-10.2); Carbon Dioxide 28 mmol/L (22-32); Chloride 102 mmol/L (98-107); Estimated Glomerular Filt Rate > 60 mL/min (>60); Glucose 156 mg/dL (70-100); Potassium 4.7 mmol/L (3.4-5.1); Sodium 136 mmol/L (137-145)
[2023-08-20 19:36] LABS: HEMOLYSIS 62 (0-50)
[2023-08-20 19:48] LABS: Procalcitonin 0.05 ng/mL (<0.5)
[2023-08-20] MEDS: CIPROFLOXACIN 250 MG TABLET 500 MG PO (20:02)
[2023-08-20 20:05] VITALS: BP 163/80; PULSE 90; RESP 18; O2SAT 98
[2023-08-20 20:12] LABS: Erythrocyte Sedimentation Rate 1 MM/HR (0-15)
== END 2023-08-20 20:09 | disposition home or self-care (01) ==
PROVIDERS: Emergency Provider Emergency Medicine; PCP Student in an Organized Health Care Education/Training Program
DX: E11.621 Type 2 diabetes mellitus with foot ulcer (principal); L97.519 Non-pressure chronic ulcer of other part of right foot with unspecified severity; Z79.899 Other long term (current) drug therapy
CPT/HCPCS: 73630; 80048; 83605; 84145; 85025; 85651; 86140; 87070; 87075; 87077; 87147; 87186; 87205; 99283; 99284

== ENCOUNTER → 2023-09-08 10:38 | Outpatient (CLI) | payer OTHER, SELFPAY | PROVIDERS: PCP Student in an Organized Health Care Education/Training Program; Referring Provider Emergency Medicine; Visit Provider Surgery | DX: E11.69 Type 2 diabetes mellitus with other specified complication (principal); E11.29 Type 2 diabetes mellitus with other diabetic kidney complication; E78.5 Hyperlipidemia, unspecified; R80.9 Proteinuria, unspecified; E11.621 Type 2 diabetes mellitus with foot ulcer; L97.514 Non-pressure chronic ulcer of other part of right foot with necrosis of bone; E11.42 Type 2 diabetes mellitus with diabetic polyneuropathy; M86.171 Other acute osteomyelitis, right ankle and foot; I10 Essential (primary) hypertension | CPT/HCPCS: 11044; 36415; 80048; 82043; 82570; 83036; 99214 ==

== ENCOUNTER → 2023-09-08 11:57 | Outpatient (CLI) | payer OTHER, SELFPAY ==
[2023-09-08 13:27] LABS: Hemoglobin A1C% w Est Avg Glu 7.8 % (4.0-6.0)
[2023-09-08 13:49] LABS: BUN Creatinine Ratio 23.2 (6-22); Blood Urea Nitrogen 16 mg/dL (9-20); Carbon Dioxide 26 mmol/L (22-32); Chloride 102 mmol/L (98-107); Estimated Glomerular Filt Rate > 60 mL/min (>60); Glucose 105 mg/dL (70-100); HEMOLYSIS < 15 (0-50); Potassium 4.7 mmol/L (3.4-5.1); Sodium 138 mmol/L (137-145)
[2023-09-08 16:42] LABS: Creatinine Urine Random 112.8 mg/dL
[2023-09-08 16:56] LABS: Microalbumi Creatinin Ratio Ur 175.5 ug/mg CR (<30); Microalbumin Urine Random 19.8 mg/dL (0-1.6)
== END ==
PROVIDERS: PCP Pediatrics; Referring Provider Pediatrics; Visit Provider Pediatrics
DX: R80.9 Proteinuria, unspecified (principal); E11.69 Type 2 diabetes mellitus with other specified complication; E78.5 Hyperlipidemia, unspecified; E11.29 Type 2 diabetes mellitus with other diabetic kidney complication
CPT/HCPCS: 36415; 80048; 82043; 82570; 83036

== ENCOUNTER → 2023-09-15 14:09 | Outpatient (CLI) | payer OTHER, SELFPAY | PROVIDERS: PCP Family Medicine; Referring Provider Emergency Medicine; Visit Provider Physician Assistant | DX: L97.514 Non-pressure chronic ulcer of other part of right foot with necrosis of bone (principal); E11.621 Type 2 diabetes mellitus with foot ulcer; E11.42 Type 2 diabetes mellitus with diabetic polyneuropathy; M86.171 Other acute osteomyelitis, right ankle and foot | CPT/HCPCS: 11042; 99213; 99214 ==

== ENCOUNTER → 2023-09-23 09:17 | Outpatient (CLI) | payer OTHER, SELFPAY | LOC: WC 09:17 | PROVIDERS: PCP Family Medicine; Referring Provider Emergency Medicine; Visit Provider Surgery | DX: L97.514 Non-pressure chronic ulcer of other part of right foot with necrosis of bone (principal); E11.621 Type 2 diabetes mellitus with foot ulcer; R60.0 Localized edema; L84 Corns and callosities | CPT/HCPCS: 11042 ==

== ENCOUNTER → 2023-09-26 08:59 | Outpatient (CLI) | payer OTHER, SELFPAY ==
[2023-09-26 10:42] LABS: Creatine Kinase 393 U/L (55-170)
== END ==
PROVIDERS: PCP Family Medicine; Referring Provider Internal Medicine Infectious Disease; Visit Provider Internal Medicine Infectious Disease
DX: M86.9 Osteomyelitis, unspecified (principal)
CPT/HCPCS: 36415; 82550

== ENCOUNTER → 2023-09-30 09:01 | Outpatient (CLI) | payer OTHER, SELFPAY | PROVIDERS: PCP Family Medicine; Referring Provider Emergency Medicine; Visit Provider Surgery | DX: E11.621 Type 2 diabetes mellitus with foot ulcer (principal); L97.514 Non-pressure chronic ulcer of other part of right foot with necrosis of bone; L84 Corns and callosities; R60.0 Localized edema; I10 Essential (primary) hypertension; E78.5 Hyperlipidemia, unspecified | CPT/HCPCS: 11042 ==

== ENCOUNTER → 2023-10-07 09:03 | Outpatient (CLI) | payer OTHER, SELFPAY | LOC: WC 09:04 | PROVIDERS: PCP Family Medicine; Referring Provider Emergency Medicine; Visit Provider Surgery | DX: L97.514 Non-pressure chronic ulcer of other part of right foot with necrosis of bone (principal); E11.621 Type 2 diabetes mellitus with foot ulcer; R60.0 Localized edema; L84 Corns and callosities | CPT/HCPCS: 11042; 99213 ==

== ENCOUNTER → 2023-10-21 09:31 | Outpatient (CLI) | payer OTHER, SELFPAY | LOC: WC 09:32 | PROVIDERS: PCP Family Medicine; Referring Provider Emergency Medicine; Visit Provider Surgery | DX: E11.621 Type 2 diabetes mellitus with foot ulcer (principal); E11.42 Type 2 diabetes mellitus with diabetic polyneuropathy; L97.512 Non-pressure chronic ulcer of other part of right foot with fat layer exposed; L84 Corns and callosities; R60.0 Localized edema; Z79.899 Other long term (current) drug therapy; F17.210 Nicotine dependence, cigarettes, uncomplicated | CPT/HCPCS: 11042 ==

== ENCOUNTER → 2023-10-28 08:37 | Outpatient (CLI) | payer OTHER, SELFPAY | LOC: WC 08:38 | PROVIDERS: PCP Family Medicine; Referring Provider Emergency Medicine; Visit Provider Surgery | DX: E11.621 Type 2 diabetes mellitus with foot ulcer (principal); L97.512 Non-pressure chronic ulcer of other part of right foot with fat layer exposed; L84 Corns and callosities; R60.0 Localized edema; E11.69 Type 2 diabetes mellitus with other specified complication; M86.171 Other acute osteomyelitis, right ankle and foot; E11.40 Type 2 diabetes mellitus with diabetic neuropathy, unspecified; I10 Essential (primary) hypertension; E78.5 Hyperlipidemia, unspecified; F17.210 Nicotine dependence, cigarettes, uncomplicated; E66.01 Morbid (severe) obesity due to excess calories; Z68.38 Body mass index [BMI] 38.0-38.9, adult; Z79.2 Long term (current) use of antibiotics; Z91.199 Patient's noncompliance with other medical treatment and regimen due to unspecified reason | CPT/HCPCS: 11042 ==

== ENCOUNTER → 2023-11-13 14:33 | Outpatient (CLI) | payer OTHER, SELFPAY | LOC: WC 14:33 | PROVIDERS: PCP Family Medicine; Referring Provider Family Medicine; Visit Provider Surgery | DX: E11.621 Type 2 diabetes mellitus with foot ulcer (principal); L97.516 Non-pressure chronic ulcer of other part of right foot with bone involvement without evidence of necrosis; L84 Corns and callosities; E11.42 Type 2 diabetes mellitus with diabetic polyneuropathy; M86.171 Other acute osteomyelitis, right ankle and foot; R60.0 Localized edema; F17.210 Nicotine dependence, cigarettes, uncomplicated; Z91.199 Patient's noncompliance with other medical treatment and regimen due to unspecified reason | CPT/HCPCS: 11042; 99212 ==

== ENCOUNTER → 2023-11-18 08:51 | Outpatient (CLI) | payer OTHER, SELFPAY | LOC: WC 08:52 | PROVIDERS: PCP Family Medicine; Referring Provider Emergency Medicine; Visit Provider Surgery | DX: E11.621 Type 2 diabetes mellitus with foot ulcer (principal); E11.42 Type 2 diabetes mellitus with diabetic polyneuropathy; L97.516 Non-pressure chronic ulcer of other part of right foot with bone involvement without evidence of necrosis; L84 Corns and callosities; R60.0 Localized edema; F17.210 Nicotine dependence, cigarettes, uncomplicated; Z91.199 Patient's noncompliance with other medical treatment and regimen due to unspecified reason; Z79.2 Long term (current) use of antibiotics | CPT/HCPCS: 11042 ==

== ENCOUNTER → 2023-11-25 09:56 | Outpatient (CLI) | payer OTHER, SELFPAY | LOC: WC 09:57 | PROVIDERS: PCP Family Medicine; Referring Provider Emergency Medicine; Visit Provider Surgery | DX: E11.621 Type 2 diabetes mellitus with foot ulcer (principal); L97.516 Non-pressure chronic ulcer of other part of right foot with bone involvement without evidence of necrosis; L84 Corns and callosities; R60.0 Localized edema; E11.42 Type 2 diabetes mellitus with diabetic polyneuropathy; F17.210 Nicotine dependence, cigarettes, uncomplicated; Z91.199 Patient's noncompliance with other medical treatment and regimen due to unspecified reason | CPT/HCPCS: 11042 ==

== ENCOUNTER → 2023-12-02 08:51 | Outpatient (CLI) | payer OTHER, SELFPAY | PROVIDERS: PCP Family Medicine; Referring Provider Emergency Medicine; Visit Provider Surgery | DX: E11.621 Type 2 diabetes mellitus with foot ulcer (principal); L97.516 Non-pressure chronic ulcer of other part of right foot with bone involvement without evidence of necrosis; L84 Corns and callosities; R60.0 Localized edema; E11.69 Type 2 diabetes mellitus with other specified complication; M86.171 Other acute osteomyelitis, right ankle and foot; E11.40 Type 2 diabetes mellitus with diabetic neuropathy, unspecified; I10 Essential (primary) hypertension; E66.01 Morbid (severe) obesity due to excess calories; Z68.38 Body mass index [BMI] 38.0-38.9, adult; F17.210 Nicotine dependence, cigarettes, uncomplicated; Z91.199 Patient's noncompliance with other medical treatment and regimen due to unspecified reason | CPT/HCPCS: 11042 ==

== ENCOUNTER → 2023-12-08 09:19 | Outpatient (CLI) | payer OTHER, SELFPAY | LOC: WC 09:20 | PROVIDERS: PCP Family Medicine; Referring Provider Family Medicine; Visit Provider Surgery | DX: E11.621 Type 2 diabetes mellitus with foot ulcer (principal); E11.42 Type 2 diabetes mellitus with diabetic polyneuropathy; L97.516 Non-pressure chronic ulcer of other part of right foot with bone involvement without evidence of necrosis; R60.0 Localized edema; L84 Corns and callosities; F17.210 Nicotine dependence, cigarettes, uncomplicated; Z91.199 Patient's noncompliance with other medical treatment and regimen due to unspecified reason; Z79.2 Long term (current) use of antibiotics | CPT/HCPCS: 11042 ==

== ENCOUNTER → 2023-12-13 07:55 | Outpatient (CLI) | payer OTHER, SELFPAY ==
[2023-12-13 08:45] LABS: Hemoglobin A1C% w Est Avg Glu 7.1 % (4.0-6.0)
[2023-12-13 08:48] LABS: Creatine Kinase 492 U/L (55-170)
== END ==
PROVIDERS: PCP Family Medicine; Referring Provider Internal Medicine Infectious Disease; Visit Provider Internal Medicine Infectious Disease
DX: E11.9 Type 2 diabetes mellitus without complications (principal)
CPT/HCPCS: 36415; 82550; 83036

== ENCOUNTER → 2023-12-16 09:58 | Outpatient (CLI) | payer OTHER, SELFPAY | LOC: WC 10:00 | PROVIDERS: PCP Family Medicine; Referring Provider Emergency Medicine; Visit Provider Surgery | DX: E11.621 Type 2 diabetes mellitus with foot ulcer (principal); L97.516 Non-pressure chronic ulcer of other part of right foot with bone involvement without evidence of necrosis; L84 Corns and callosities; E11.42 Type 2 diabetes mellitus with diabetic polyneuropathy; M86.171 Other acute osteomyelitis, right ankle and foot; R60.0 Localized edema; F17.210 Nicotine dependence, cigarettes, uncomplicated; Z91.199 Patient's noncompliance with other medical treatment and regimen due to unspecified reason | CPT/HCPCS: 11042 ==

== ENCOUNTER → 2023-12-24 09:44 | Outpatient (CLI) | payer OTHER, SELFPAY | LOC: WC 10:04 | PROVIDERS: PCP Family Medicine; Referring Provider Emergency Medicine; Visit Provider Nurse Practitioner Family | DX: E11.621 Type 2 diabetes mellitus with foot ulcer (principal); E11.42 Type 2 diabetes mellitus with diabetic polyneuropathy; L97.516 Non-pressure chronic ulcer of other part of right foot with bone involvement without evidence of necrosis; M86.171 Other acute osteomyelitis, right ankle and foot; L84 Corns and callosities; F17.210 Nicotine dependence, cigarettes, uncomplicated; Z91.199 Patient's noncompliance with other medical treatment and regimen due to unspecified reason | CPT/HCPCS: 11042; 99213; 99214 ==

== ENCOUNTER → 2023-12-30 08:52 | Outpatient (CLI) | payer OTHER, SELFPAY | LOC: WC 08:52 | PROVIDERS: PCP Family Medicine; Referring Provider Emergency Medicine; Visit Provider Surgery | DX: E11.621 Type 2 diabetes mellitus with foot ulcer (principal); L97.516 Non-pressure chronic ulcer of other part of right foot with bone involvement without evidence of necrosis; L84 Corns and callosities; E11.42 Type 2 diabetes mellitus with diabetic polyneuropathy; M86.171 Other acute osteomyelitis, right ankle and foot; Z91.199 Patient's noncompliance with other medical treatment and regimen due to unspecified reason; F17.210 Nicotine dependence, cigarettes, uncomplicated | CPT/HCPCS: 11042 ==

== ENCOUNTER → 2024-01-06 08:39 | Outpatient (CLI) | payer OTHER, SELFPAY | PROVIDERS: PCP Family Medicine; Referring Provider Emergency Medicine; Visit Provider Surgery | DX: E11.621 Type 2 diabetes mellitus with foot ulcer (principal); L97.516 Non-pressure chronic ulcer of other part of right foot with bone involvement without evidence of necrosis; E11.42 Type 2 diabetes mellitus with diabetic polyneuropathy; L84 Corns and callosities; M86.171 Other acute osteomyelitis, right ankle and foot; F17.210 Nicotine dependence, cigarettes, uncomplicated; R60.0 Localized edema | CPT/HCPCS: 11042; 99213 ==

== ENCOUNTER → 2024-01-13 09:27 | Outpatient (CLI) | payer OTHER, SELFPAY | LOC: WC 09:31 | PROVIDERS: PCP Family Medicine; Referring Provider Emergency Medicine; Visit Provider Surgery | DX: E11.621 Type 2 diabetes mellitus with foot ulcer (principal); L97.516 Non-pressure chronic ulcer of other part of right foot with bone involvement without evidence of necrosis; E11.42 Type 2 diabetes mellitus with diabetic polyneuropathy; R60.0 Localized edema; L84 Corns and callosities; F17.210 Nicotine dependence, cigarettes, uncomplicated; Z79.2 Long term (current) use of antibiotics | CPT/HCPCS: 11042 ==

== ENCOUNTER → 2024-01-20 08:52 | Outpatient (CLI) | payer OTHER, SELFPAY | LOC: WC 08:52 | PROVIDERS: PCP Family Medicine; Referring Provider Emergency Medicine; Visit Provider Surgery | DX: E11.621 Type 2 diabetes mellitus with foot ulcer (principal); L97.516 Non-pressure chronic ulcer of other part of right foot with bone involvement without evidence of necrosis; E11.42 Type 2 diabetes mellitus with diabetic polyneuropathy; F17.210 Nicotine dependence, cigarettes, uncomplicated; Z91.199 Patient's noncompliance with other medical treatment and regimen due to unspecified reason; R60.0 Localized edema; L84 Corns and callosities | CPT/HCPCS: 11042; 99213 ==

== ENCOUNTER → 2024-01-27 10:11 | Outpatient (CLI) | payer OTHER, SELFPAY | LOC: WC 10:11 | PROVIDERS: PCP Family Medicine; Referring Provider Emergency Medicine; Visit Provider Surgery | DX: E11.621 Type 2 diabetes mellitus with foot ulcer (principal); L97.512 Non-pressure chronic ulcer of other part of right foot with fat layer exposed; L84 Corns and callosities; R60.0 Localized edema; E11.42 Type 2 diabetes mellitus with diabetic polyneuropathy; M86.171 Other acute osteomyelitis, right ankle and foot; F17.210 Nicotine dependence, cigarettes, uncomplicated | CPT/HCPCS: 11042 ==

== ENCOUNTER → 2024-02-03 08:54 | Outpatient (CLI) | payer OTHER, SELFPAY | LOC: WC 08:55 | PROVIDERS: PCP Family Medicine; Referring Provider Family Medicine; Visit Provider Surgery | DX: E11.621 Type 2 diabetes mellitus with foot ulcer (principal); E11.42 Type 2 diabetes mellitus with diabetic polyneuropathy; L97.512 Non-pressure chronic ulcer of other part of right foot with fat layer exposed; L53.9 Erythematous condition, unspecified; R60.0 Localized edema; L84 Corns and callosities; F17.210 Nicotine dependence, cigarettes, uncomplicated; Z91.199 Patient's noncompliance with other medical treatment and regimen due to unspecified reason; M86.171 Other acute osteomyelitis, right ankle and foot | CPT/HCPCS: 11042 ==

== ENCOUNTER → 2024-02-10 08:34 | Outpatient (CLI) | payer OTHER, SELFPAY | LOC: WC 08:34 | PROVIDERS: PCP Family Medicine; Referring Provider Family Medicine; Visit Provider Surgery | DX: E11.621 Type 2 diabetes mellitus with foot ulcer (principal); L97.512 Non-pressure chronic ulcer of other part of right foot with fat layer exposed; E11.42 Type 2 diabetes mellitus with diabetic polyneuropathy; R60.0 Localized edema; L84 Corns and callosities; F17.210 Nicotine dependence, cigarettes, uncomplicated; Z91.199 Patient's noncompliance with other medical treatment and regimen due to unspecified reason | CPT/HCPCS: 11042 ==

== ENCOUNTER → 2024-02-17 09:34 | Outpatient (CLI) | payer OTHER, SELFPAY | PROVIDERS: PCP Family Medicine; Referring Provider Family Medicine; Visit Provider Surgery | DX: E11.621 Type 2 diabetes mellitus with foot ulcer (principal); E11.42 Type 2 diabetes mellitus with diabetic polyneuropathy; L97.512 Non-pressure chronic ulcer of other part of right foot with fat layer exposed; M86.171 Other acute osteomyelitis, right ankle and foot; R60.0 Localized edema; L84 Corns and callosities; F17.210 Nicotine dependence, cigarettes, uncomplicated | CPT/HCPCS: 11042; 99213 ==

== ENCOUNTER 2024-02-19 20:05 | Emergency (ER) | payer OTHER, SELFPAY ==
[2024-02-19 20:12] VITALS: BP 145/89; PULSE 98; RESP 22; TEMP 36.5; O2SAT 97; BMI 39.4
[2024-02-19 20:17] VITALS: BP 158/97; PULSE 100; O2SAT 95
[2024-02-19 20:30] VITALS: BP 138/68; PULSE 94; RESP 16; O2SAT 97
--- NOTE | 2024-02-19 20:33 | DI.RAD.S_ITS ---
PROCEDURE: XR CHEST 1V INDICATIONS: CHEST PAIN TECHNIQUE: One view of the chest was acquired. COMPARISON: None. FINDINGS: Surgical changes and devices: None. Lungs and pleura: Lungs are clear. No pleural effusions or pneumothorax. Mediastinum: Mediastinal contours appear normal. Heart size is normal. Bones and chest wall: No suspicious bony lesions. Overlying soft tissues appear unremarkable. IMPRESSION: No acute pulmonary process. Dictated by: Lorenza Tobar M.D. on 02/19/2024 at 20:55 Approved by: Lorenza Tobar M.D. on 02/19/2024 at 20:55
[2024-02-19 20:44] LABS: Add Manual Diff / Slide Review NO; Basophils Absolute Auto 100 /uL (0-100); Basophils Percent Auto 0.5 % (0-2); Eosinophils Absolute Auto 600 /uL (0-450); Hematocrit 48.3 % (41-53); Hemoglobin 16.5 g/dL (13.5-17.5); Lymphocytes Absolute Auto 3000 /uL (1100-4500); Lymphocytes Percent Auto 19.3 % (25-40); Mean Corpuscular HGB Conc 34.1 % (30-36); Mean Corpuscular Hemoglobin 27.7 PG (26-34); Mean Corpuscular Volume 81.5 fL (80-100); Monocytes Absolute Auto 1700 /uL (0-900); Monocytes Percent Auto 10.9 % (3-14); Neutrophils Absolute Auto 10100 /uL (1500-7000); Neutrophils Percent Auto 65.3 % (50-75); Platelet Count 341 X10^3/uL (150-400); Red Blood Cell Count 5.93 X10^6/uL (4.5-5.9); Red Cell Distribution Width 14.1 % (11.6-14.8); White Blood Cell Count 15.4 X10^3/uL (4.5-11.0)
[2024-02-19 20:47] LABS: Prothrombin Time 11.3 SECONDS (9.4-12.5)
--- NOTE | 2024-02-19 21:17 | ED_ITS ---
HPI - Chest Pain General Chief Complaint: Chest Pain Stated Complaint: Chest pain Time Seen by Provider: 02/19/24 20:19 Source: patient Mode of arrival: Ambulatory Limitations: no limitations History of Present Illness HPI narrative: 38-year-old male with history of hypertension, diabetes, hyperlipidemia presents by private vehicle from home for left-sided chest pain. Pain began while he was sitting on the couch. His constant, does not radiate. No medications taken prior to arrival. He had a single episode of nausea with vomiting prior to arrival. He denies nausea currently. He was currently taking cefadroxil for a diabetic foot infection. He received weekly wound care and states that his wound is in the process of healing well. Related Data Home Medications Medication Instructions Recorded Confirmed aspirin 81 mg tablet,delayed 81 mg PO DAILY 01/08/21 12/17/23 release ciprofloxacin HCl 500 mg tablet 500 mg PO BID 10/15/23 12/17/23 doxycycline monohydrate 100 mg 100 mg PO BID 10/15/23 12/17/23 capsule cefadroxil 500 mg capsule 1,000 mg PO BID 11/12/23 12/17/23 Previous Rx's Medication Instructions Recorded blood sugar diagnostic (Blood #100 ea 01/18/21 Glucose Test strips) blood-glucose meter #1 ea 01/18/21 lancets (Comfort Lancets) #100 ea 01/18/21 lisinopril 20 mg tablet 20 mg PO DAILY #90 tabs 03/14/23 atorvastatin 20 mg tablet 20 mg PO BEDTIME #90 tabs 05/20/23 glipizide 10 mg tablet, extended 10 mg PO BID #180 tabs 10/15/23 release 24 hr metformin 1,000 mg tablet 1,000 mg PO BID #180 tabs 10/15/23 Allergies Allergy/AdvReac Type Severity Reaction Status Date / Time coconut AdvReac Intermediate Verified 12/17/23 07:54 Iodinated Contrast Media AdvReac Intermediate wrist Verified 12/17/23 07:54 swelling Review of Systems Review of Systems Narrative: See HPI Patient History Medical History Elevated creatine kinase Type 2 diabetes mellitus Hyperlipidemia associated with type 2 diabetes mellitus Essential hypertension Morbid obesity (03/29/03) Attention deficit disorder with hyperactivity (03/29/03) Social History Smoking Status: Current every day smoker Smoking Status: Current every day smoker tobacco type: cigarettes alcohol intake frequency: 0-2 drinks per day Substance Use Type: marijuana Exam Initial Vital Signs Initial Vital Signs: Vital Signs Temperature 97.7 F 02/19/24 20:12 Pulse Rate 98 H 02/19/24 20:12 Respiratory Rate 22 02/19/24 20:12 Blood Pressure 145/89 H 02/19/24 20:12 Pulse Oximetry 97 02/19/24 20:12 Oxygen Delivery Method Room Air 02/19/24 20:12 Const: Awake, alert, no acute distress, appears chronically unwell, older than stated age Cardiac: regular rate, regular rhythm RESP: unlabored, clear bilaterally, no wheezing MSK: Atraumatic, full range of motion, pulses equal Skin: Warm, Dry, diabetic wound on right foot with intact dressing Neuro: AO x3, CN II-XII grossly intact, moves all extremities Course Orders Ordered: ED Orders 02/19/24 20:30 CBC Auto Diff [Complete Blood Count AUTO DIFF] Stat CMP [Comprehensive Metabolic Panel] Stat Lipase Stat PT [Prothrombin Time INR] Stat Troponin & CK Cardiac Panel Stat 02/19/24 20:33 Chest [XR chest 1V] Stat EKG-12 Lead Stat Discontinued Medications Ketorolac Tromethamine (Ketorolac 30 Mg/Ml Vial) 15 mg IV NOW ONE Stop: 02/19/24 21:32 Vital Signs Vital signs: Vital Signs - 8 hr 02/19/24 22:08 Pulse Rate 86 Respiratory Rate 18 Blood Pressure 133/91 H Pulse Oximetry 99 Oxygen Delivery Method Room Air MDM - Chest Pain Differential Diagnosis Differential diagnosis: Likely fracture of rib, pneumothorax and stable angina Lab Data 02/19/24 20:30 02/19/24 20:30 Labs: Lab Results 02/19/24 Range/Units 20:30 WBC 15.4 H (4.5-11.0) X10^3/uL RBC 5.93 H (4.5-5.9) X10^6/uL Hgb 16.5 (13.5-17.5) g/dL Hct 48.3 (41-53) % MCV 81.5 (80-100) fL MCH 27.7 (26-34) PG MCHC 34.1 (30-36) % RDW 14.1 (11.6-14.8) % Plt Count 341 (150-400) X10^3/uL Neut % (Auto) 65.3 (50-75) % Lymph % (Auto) 19.3 L (25-40) % Lawrence % (Auto) 10.9 (3-14) % Eos % (Auto) 4.0 (2-4) % Baso % (Auto) 0.5 (0-2) % Neut # (Auto) 27714 H (2145-3516) /uL Lymph # (Auto) 3000 (4830-6749) /uL Lawrence # (Auto) 1700 H (0-900) /uL Eos # (Auto) 600 H (0-450) /uL Baso # (Auto) 100 (0-100) /uL PT 11.3 (9.4-12.5) SECONDS INR 1.0 (0.9-1.3) Sodium 135 L (137-145) mmol/L Potassium 4.0 (3.4-5.1) mmol/L Chloride 106 (98-107) mmol/L Carbon Dioxide 22 (22-32) mmol/L BUN 17 (9-20) mg/dL Creatinine 0.63 L (0.66-1.25) mg/dL Estimated GFR > 60 (>60) mL/min BUN/Creatinine Ratio 27.0 H (6-22) Glucose 137 H (70-100) mg/dL Calcium 9.4 (8.4-10.2) mg/dL Total Bilirubin 1.4 H (0.2-1.3) mg/dL AST 35 (17-59) IU/L ALT 46 (<50) IU/L Alkaline Phosphatase 69 (38-126) U/L Total Creatine Kinase 458 H (55-170) U/L Troponin I < 0.012 (0.01-0.034) ng/mL Total Protein 7.5 (6.3-8.2) g/dL Albumin 4.6 (3.5-5.0) g/dL Globulin 2.9 (1.7-4.1) g/dL Albumin/Globulin Ratio 1.6 (1.0-2.8) Lipase 166 (23-300) U/L Imaging Data Chest x-ray: Radiologist's Impression: PROCEDURE: XR CHEST 1V INDICATIONS: CHEST PAIN TECHNIQUE: One view of the chest was acquired. COMPARISON: None. FINDINGS: Surgical changes and devices: None. Lungs and pleura: Lungs are clear. No pleural effusions or pneumothorax. Mediastinum: Mediastinal contours appear normal. Heart size is normal. Bones and chest wall: No suspicious bony lesions. Overlying soft tissues appear unremarkable. IMPRESSION: No acute pulmonary process. Dictated by: Lorenza Tobar M.D. on 02/19/2024 at 20:55 Approved by: Lorenza Tobar M.D. on 02/19/2024 at 20:55 ECG Data Interpretation: Normal sinus rhythm at 90 beats per minute, normal axis, no ST T wave changes, no STEMI MDM Narrative Medical decision making narrative: Chronically unwell appearing patient with left-sided chest pain. EKG sinus rhythm without ischemic findings. Heart score 2 based on risk factors of obesity, smoking, diabetes, hypertension. Chest x-ray negative for acute findings. Initial troponin undetectable. Other laboratory work reviewed. Patient was nonspecific leukocytosis without obvious etiology. Troponin undetectable. Patient offered Toradol for pain, however he declined stating that since his labs and EKG were normal he was no longer worried about heart attack and would like to go home. Patient recommended to follow up with his primary care physician, and if he continues to experience chest pain a cardiology referral may be indicated. Discharge Plan Departure Patient Disposition: Home Clinical Impression: Chest pain Instructions: DI for Chest Pain Activity Restrictions/Additional Instructions: Your laboratory work, EKG, and chest x-ray were reassuring that this is not a heart attack. If you continue to experience symptoms it may be worthwhile talking to a bolting machine operator. Please follow up with your primary care physician. Please return to the emergency department if you notice any new or worsening chest pains. Prescriptions: No Action ciprofloxacin HCl 500 mg tablet 500 mg PO BID doxycycline monohydrate 100 mg capsule 100 mg PO BID glipizide 10 mg tablet extended release 24hr 10 mg PO BID Qty: 180 3RF metformin 1,000 mg tablet 1,000 mg PO BID Qty: 180 3RF Rx Instructions: w/Meals. cefadroxil 500 mg capsule 1,000 mg PO BID (DME) blood-glucose meter Mis See Rx Instructions .ROUTE .MEDSUPPLY Qty: 1 0RF Rx Instructions: Use to check blood sugar at least once daily (DME) Blood Glucose Test Strip See Rx Instructions .ROUTE .MEDSUPPLY Qty: 100 0RF Rx Instructions: Use to check blood sugar at least once daily (DME) lancets [Comfort Lancets] Misc See Rx Instructions .ROUTE .MEDSUPPLY Qty: 100 0RF Rx Instructions: As directed lisinopril 20 mg tablet 20 mg PO DAILY Qty: 90 3RF atorvastatin 20 mg tablet 20 mg PO BEDTIME Qty: 90 1RF aspirin 81 mg tablet,delayed release (DR/EC) 81 mg PO DAILY Referrals: Celine Houser MD [Primary Care Provider] - Stand Alone Forms: Patient Portal/API
[2024-02-19 21:24] LABS: Alanine Aminotransferase 46 IU/L (<50); Albumin 4.6 g/dL (3.5-5.0); Albumin Globulin Ratio 1.6 (1.0-2.8); Alkaline Phosphatase 69 U/L (38-126); Aspartate Aminotransferase 35 IU/L (17-59); Bilirubin Total 1.4 mg/dL (0.2-1.3); Blood Urea Nitrogen 17 mg/dL (9-20); Calcium 9.4 mg/dL (8.4-10.2); Carbon Dioxide 22 mmol/L (22-32); Chloride 106 mmol/L (98-107); Creatine Kinase 458 U/L (55-170); Estimated Glomerular Filt Rate > 60 mL/min (>60); Globulin 2.9 g/dL (1.7-4.1); Glucose 137 mg/dL (70-100); HEMOLYSIS < 15 (0-50); Lipase 166 U/L (23-300); Sodium 135 mmol/L (137-145); Total Protein 7.5 g/dL (6.3-8.2)
[2024-02-19 21:35] LABS: Troponin I < 0.012 ng/mL (0.01-0.034)
[2024-02-19 22:08] VITALS: BP 133/91; PULSE 86; RESP 18; O2SAT 99
== END 2024-02-19 22:10 | disposition home or self-care (01) ==
PROVIDERS: Emergency Provider Emergency Medicine; PCP Family Medicine
DX: R07.9 Chest pain, unspecified (principal)
CPT/HCPCS: 36415; 71045; 80053; 82550; 83690; 84484; 85025; 85610; 93005; 99283; 99284

== ENCOUNTER → 2024-02-24 08:34 | Outpatient (CLI) | payer OTHER, SELFPAY | LOC: WC 08:35 | PROVIDERS: PCP Family Medicine; Referring Provider Family Medicine; Visit Provider Surgery | DX: E11.621 Type 2 diabetes mellitus with foot ulcer (principal); L97.512 Non-pressure chronic ulcer of other part of right foot with fat layer exposed; L84 Corns and callosities; R60.0 Localized edema; E11.69 Type 2 diabetes mellitus with other specified complication; M86.171 Other acute osteomyelitis, right ankle and foot; E11.40 Type 2 diabetes mellitus with diabetic neuropathy, unspecified; F17.210 Nicotine dependence, cigarettes, uncomplicated; E66.01 Morbid (severe) obesity due to excess calories; Z68.38 Body mass index [BMI] 38.0-38.9, adult; Z79.2 Long term (current) use of antibiotics; Z91.198 Patient's noncompliance with other medical treatment and regimen for other reason | CPT/HCPCS: 11042 ==

== ENCOUNTER → 2024-03-02 08:42 | Outpatient (CLI) | payer OTHER, SELFPAY | LOC: WC 08:43 | PROVIDERS: PCP Family Medicine; Referring Provider Emergency Medicine; Visit Provider Surgery | DX: E11.621 Type 2 diabetes mellitus with foot ulcer (principal); E11.42 Type 2 diabetes mellitus with diabetic polyneuropathy; L97.512 Non-pressure chronic ulcer of other part of right foot with fat layer exposed; R60.0 Localized edema; L84 Corns and callosities; F17.210 Nicotine dependence, cigarettes, uncomplicated; Z91.199 Patient's noncompliance with other medical treatment and regimen due to unspecified reason; M86.171 Other acute osteomyelitis, right ankle and foot | CPT/HCPCS: 11042 ==

== ENCOUNTER → 2024-03-09 08:50 | Outpatient (CLI) | payer OTHER, SELFPAY | LOC: WC 08:50 | PROVIDERS: PCP Family Medicine; Referring Provider Emergency Medicine; Visit Provider Surgery | DX: E11.621 Type 2 diabetes mellitus with foot ulcer (principal); E11.42 Type 2 diabetes mellitus with diabetic polyneuropathy; L84 Corns and callosities; R60.0 Localized edema; F17.210 Nicotine dependence, cigarettes, uncomplicated; Z91.199 Patient's noncompliance with other medical treatment and regimen due to unspecified reason | CPT/HCPCS: 97602; 99213 ==

== ENCOUNTER → 2024-03-16 09:04 | Outpatient (CLI) | payer OTHER, SELFPAY | PROVIDERS: PCP Family Medicine; Referring Provider Emergency Medicine; Visit Provider Physician Assistant | DX: E11.42 Type 2 diabetes mellitus with diabetic polyneuropathy (principal); L84 Corns and callosities; R60.0 Localized edema; F17.210 Nicotine dependence, cigarettes, uncomplicated | CPT/HCPCS: 99212; 99213 ==

== ENCOUNTER → 2024-03-23 09:11 | Outpatient (CLI) | payer OTHER, SELFPAY | LOC: WC 09:11 | PROVIDERS: PCP Family Medicine; Referring Provider Emergency Medicine; Visit Provider Surgery | DX: E11.621 Type 2 diabetes mellitus with foot ulcer (principal); E11.42 Type 2 diabetes mellitus with diabetic polyneuropathy; L97.512 Non-pressure chronic ulcer of other part of right foot with fat layer exposed; L84 Corns and callosities; F17.210 Nicotine dependence, cigarettes, uncomplicated; Z91.199 Patient's noncompliance with other medical treatment and regimen due to unspecified reason | CPT/HCPCS: 11042; 87070; 87147; 87205; 99213 ==

== ENCOUNTER → 2024-03-30 09:08 | Outpatient (CLI) | payer OTHER, SELFPAY | LOC: WC 09:11 | PROVIDERS: PCP Family Medicine; Referring Provider Emergency Medicine; Visit Provider Surgery | DX: E11.621 Type 2 diabetes mellitus with foot ulcer (principal); E11.42 Type 2 diabetes mellitus with diabetic polyneuropathy; L97.512 Non-pressure chronic ulcer of other part of right foot with fat layer exposed; L84 Corns and callosities; R60.0 Localized edema; F17.210 Nicotine dependence, cigarettes, uncomplicated; Z91.199 Patient's noncompliance with other medical treatment and regimen due to unspecified reason | CPT/HCPCS: 11042 ==

== ENCOUNTER → 2024-04-06 08:43 | Outpatient (CLI) | payer OTHER, SELFPAY | LOC: WC 08:43 | PROVIDERS: PCP Family Medicine; Referring Provider Emergency Medicine; Visit Provider Surgery | DX: E11.621 Type 2 diabetes mellitus with foot ulcer (principal); E11.42 Type 2 diabetes mellitus with diabetic polyneuropathy; L97.512 Non-pressure chronic ulcer of other part of right foot with fat layer exposed; L84 Corns and callosities; R60.0 Localized edema; F17.210 Nicotine dependence, cigarettes, uncomplicated; Z91.199 Patient's noncompliance with other medical treatment and regimen due to unspecified reason | CPT/HCPCS: 11042 ==

== ENCOUNTER → 2024-04-13 07:37 | Outpatient (CLI) | payer OTHER, SELFPAY ==
[2024-04-13 08:19] LABS: Alanine Aminotransferase 41 IU/L (<50); Albumin 4.5 g/dL (3.5-5.0); Albumin Globulin Ratio 1.6 (1.0-2.8); Alkaline Phosphatase 68 U/L (38-126); Aspartate Aminotransferase 29 IU/L (17-59); BUN Creatinine Ratio 19.8 (6-22); Bilirubin Total 1.1 mg/dL (0.2-1.3); Blood Urea Nitrogen 16 mg/dL (9-20); Calcium 9.2 mg/dL (8.4-10.2); Carbon Dioxide 28 mmol/L (22-32); Chloride 102 mmol/L (98-107); Creatine Kinase 427 U/L (55-170); Estimated Glomerular Filt Rate > 60 mL/min (>60); Globulin 2.8 g/dL (1.7-4.1); Glucose 136 mg/dL (70-100); HEMOLYSIS < 15 (0-50); Potassium 4.5 mmol/L (3.4-5.1); Sodium 137 mmol/L (137-145); Total Protein 7.3 g/dL (6.3-8.2)
== END ==
PROVIDERS: PCP Family Medicine; Referring Provider Family Medicine; Visit Provider Family Medicine
DX: E11.621 Type 2 diabetes mellitus with foot ulcer (principal); E11.42 Type 2 diabetes mellitus with diabetic polyneuropathy; L97.512 Non-pressure chronic ulcer of other part of right foot with fat layer exposed; L84 Corns and callosities; R60.0 Localized edema; F17.210 Nicotine dependence, cigarettes, uncomplicated; Z91.199 Patient's noncompliance with other medical treatment and regimen due to unspecified reason
CPT/HCPCS: 11042; 36415; 80053; 82550

== ENCOUNTER → 2024-04-13 08:31 | Outpatient (CLI) | payer OTHER, SELFPAY | PROVIDERS: PCP Family Medicine; Referring Provider Emergency Medicine; Visit Provider Surgery | DX: E11.621 Type 2 diabetes mellitus with foot ulcer (principal); E11.42 Type 2 diabetes mellitus with diabetic polyneuropathy; L97.512 Non-pressure chronic ulcer of other part of right foot with fat layer exposed; L84 Corns and callosities; R60.0 Localized edema; F17.210 Nicotine dependence, cigarettes, uncomplicated; Z91.199 Patient's noncompliance with other medical treatment and regimen due to unspecified reason | CPT/HCPCS: 11042; 99213 ==

== ENCOUNTER → 2024-04-20 08:34 | Outpatient (CLI) | payer OTHER, SELFPAY | LOC: WC 08:36 | PROVIDERS: PCP Family Medicine; Referring Provider Emergency Medicine; Visit Provider Surgery | DX: E11.621 Type 2 diabetes mellitus with foot ulcer (principal); E11.42 Type 2 diabetes mellitus with diabetic polyneuropathy; L97.512 Non-pressure chronic ulcer of other part of right foot with fat layer exposed; R60.0 Localized edema; L84 Corns and callosities; R23.4 Changes in skin texture; F17.210 Nicotine dependence, cigarettes, uncomplicated; Z91.199 Patient's noncompliance with other medical treatment and regimen due to unspecified reason | CPT/HCPCS: 97602; 99213 ==

== ENCOUNTER → 2024-04-26 07:41 | Outpatient (CLI) | payer OTHER, SELFPAY ==
[2024-04-26 08:59] LABS: Add Manual Diff / Slide Review NO; Basophils Absolute Auto 100 /uL (0-100); Basophils Percent Auto 1.2 % (0-2); Eosinophils Absolute Auto 600 /uL (0-450); Eosinophils Percent Auto 4.5 % (2-4); Hematocrit 46.8 % (41-53); Lymphocytes Absolute Auto 3200 /uL (1100-4500); Lymphocytes Percent Auto 25.3 % (25-40); Mean Corpuscular HGB Conc 34.1 % (30-36); Mean Corpuscular Hemoglobin 28.7 PG (26-34); Mean Corpuscular Volume 84.1 fL (80-100); Monocytes Absolute Auto 1000 /uL (0-900); Monocytes Percent Auto 7.6 % (3-14); Neutrophils Absolute Auto 7800 /uL (1500-7000); Neutrophils Percent Auto 61.4 % (50-75); Platelet Count 355 X10^3/uL (150-400); Red Blood Cell Count 5.57 X10^6/uL (4.5-5.9); Red Cell Distribution Width 13.5 % (11.6-14.8); White Blood Cell Count 12.7 X10^3/uL (4.5-11.0)
== END ==
PROVIDERS: PCP Family Medicine; Referring Provider Internal Medicine Infectious Disease; Visit Provider Internal Medicine Infectious Disease
DX: M86.9 Osteomyelitis, unspecified (principal)
CPT/HCPCS: 36415; 85025

== ENCOUNTER → 2024-04-27 09:44 | Outpatient (CLI) | payer OTHER, SELFPAY | PROVIDERS: PCP Family Medicine; Referring Provider Family Medicine; Visit Provider Surgery | DX: E11.621 Type 2 diabetes mellitus with foot ulcer (principal); E11.42 Type 2 diabetes mellitus with diabetic polyneuropathy; L97.512 Non-pressure chronic ulcer of other part of right foot with fat layer exposed; R60.0 Localized edema; L84 Corns and callosities; F17.210 Nicotine dependence, cigarettes, uncomplicated; Z91.199 Patient's noncompliance with other medical treatment and regimen due to unspecified reason | CPT/HCPCS: 97597 ==

== ENCOUNTER → 2024-05-04 09:39 | Outpatient (CLI) | payer OTHER, SELFPAY | PROVIDERS: PCP Family Medicine; Referring Provider Emergency Medicine; Visit Provider Surgery | DX: E11.628 Type 2 diabetes mellitus with other skin complications (principal); E11.42 Type 2 diabetes mellitus with diabetic polyneuropathy; R60.0 Localized edema; L84 Corns and callosities; R23.4 Changes in skin texture; F17.210 Nicotine dependence, cigarettes, uncomplicated; Z91.199 Patient's noncompliance with other medical treatment and regimen due to unspecified reason | CPT/HCPCS: 99212; 99213 ==

== ENCOUNTER → 2024-05-11 09:19 | Outpatient (CLI) | payer OTHER, SELFPAY | PROVIDERS: PCP Family Medicine; Referring Provider Emergency Medicine; Visit Provider Surgery | DX: E11.621 Type 2 diabetes mellitus with foot ulcer (principal); E11.42 Type 2 diabetes mellitus with diabetic polyneuropathy; L97.512 Non-pressure chronic ulcer of other part of right foot with fat layer exposed; L84 Corns and callosities; F17.210 Nicotine dependence, cigarettes, uncomplicated; Z91.199 Patient's noncompliance with other medical treatment and regimen due to unspecified reason | CPT/HCPCS: 11042; 99213 ==

== ENCOUNTER → 2024-05-18 08:29 | Outpatient (CLI) | payer OTHER, SELFPAY | PROVIDERS: PCP Family Medicine; Referring Provider Emergency Medicine; Visit Provider Physician Assistant | DX: E11.621 Type 2 diabetes mellitus with foot ulcer (principal); L97.512 Non-pressure chronic ulcer of other part of right foot with fat layer exposed; L84 Corns and callosities | CPT/HCPCS: 99213 ==

== ENCOUNTER → 2024-05-25 08:34 | Outpatient (CLI) | payer OTHER, SELFPAY | PROVIDERS: PCP Family Medicine; Referring Provider Emergency Medicine; Visit Provider Surgery | DX: E11.621 Type 2 diabetes mellitus with foot ulcer (principal); E11.42 Type 2 diabetes mellitus with diabetic polyneuropathy; L97.512 Non-pressure chronic ulcer of other part of right foot with fat layer exposed; L84 Corns and callosities; F17.210 Nicotine dependence, cigarettes, uncomplicated; Z91.199 Patient's noncompliance with other medical treatment and regimen due to unspecified reason | CPT/HCPCS: 11042 ==

== ENCOUNTER → 2024-06-01 09:07 | Outpatient (CLI) | payer OTHER, SELFPAY | LOC: WC 09:08 | PROVIDERS: PCP Family Medicine; Referring Provider Emergency Medicine; Visit Provider Surgery | DX: E11.621 Type 2 diabetes mellitus with foot ulcer (principal); E11.42 Type 2 diabetes mellitus with diabetic polyneuropathy; L97.512 Non-pressure chronic ulcer of other part of right foot with fat layer exposed; L84 Corns and callosities; F17.210 Nicotine dependence, cigarettes, uncomplicated; Z91.199 Patient's noncompliance with other medical treatment and regimen due to unspecified reason | CPT/HCPCS: 11042 ==

== ENCOUNTER → 2024-06-08 08:52 | Outpatient (CLI) | payer OTHER, SELFPAY | LOC: WC 08:53 | PROVIDERS: PCP Family Medicine; Referring Provider Family Medicine; Visit Provider Surgery | DX: E11.621 Type 2 diabetes mellitus with foot ulcer (principal); L97.512 Non-pressure chronic ulcer of other part of right foot with fat layer exposed; L84 Corns and callosities; M86.171 Other acute osteomyelitis, right ankle and foot; R23.4 Changes in skin texture; E11.40 Type 2 diabetes mellitus with diabetic neuropathy, unspecified | CPT/HCPCS: 11042; 99212; 99213 ==

== ENCOUNTER → 2024-06-15 08:52 | Outpatient (CLI) | payer OTHER, SELFPAY | PROVIDERS: PCP Family Medicine; Referring Provider Emergency Medicine; Visit Provider Surgery | DX: E11.621 Type 2 diabetes mellitus with foot ulcer (principal); E11.42 Type 2 diabetes mellitus with diabetic polyneuropathy; L97.512 Non-pressure chronic ulcer of other part of right foot with fat layer exposed; L84 Corns and callosities; F17.210 Nicotine dependence, cigarettes, uncomplicated; Z91.199 Patient's noncompliance with other medical treatment and regimen due to unspecified reason | CPT/HCPCS: 11042 ==

== ENCOUNTER → 2024-06-22 08:46 | Outpatient (CLI) | payer OTHER, SELFPAY | PROVIDERS: PCP Family Medicine; Referring Provider Emergency Medicine; Visit Provider Surgery | DX: E11.621 Type 2 diabetes mellitus with foot ulcer (principal); E11.42 Type 2 diabetes mellitus with diabetic polyneuropathy; L97.512 Non-pressure chronic ulcer of other part of right foot with fat layer exposed; L84 Corns and callosities; F17.210 Nicotine dependence, cigarettes, uncomplicated | CPT/HCPCS: 11042 ==

== ENCOUNTER → 2024-06-29 08:34 | Outpatient (CLI) | payer OTHER, SELFPAY | LOC: WC 08:34 | PROVIDERS: PCP Family Medicine; Referring Provider Emergency Medicine; Visit Provider Surgery | DX: E11.621 Type 2 diabetes mellitus with foot ulcer (principal); E11.42 Type 2 diabetes mellitus with diabetic polyneuropathy; L97.512 Non-pressure chronic ulcer of other part of right foot with fat layer exposed; L84 Corns and callosities; R23.4 Changes in skin texture; F17.210 Nicotine dependence, cigarettes, uncomplicated; Z91.199 Patient's noncompliance with other medical treatment and regimen due to unspecified reason | CPT/HCPCS: 11042 ==

== ENCOUNTER → 2024-07-06 08:54 | Outpatient (CLI) | payer OTHER, SELFPAY | LOC: WC 08:55 | PROVIDERS: PCP Family Medicine; Referring Provider Family Medicine; Visit Provider Surgery | DX: E11.621 Type 2 diabetes mellitus with foot ulcer (principal); E11.42 Type 2 diabetes mellitus with diabetic polyneuropathy; L97.512 Non-pressure chronic ulcer of other part of right foot with fat layer exposed; L84 Corns and callosities; F17.210 Nicotine dependence, cigarettes, uncomplicated | CPT/HCPCS: 11042; 99213 ==

== ENCOUNTER → 2024-07-13 08:43 | Outpatient (CLI) | payer OTHER, SELFPAY | PROVIDERS: PCP Family Medicine; Referring Provider Emergency Medicine; Visit Provider Surgery | DX: E11.621 Type 2 diabetes mellitus with foot ulcer (principal); E11.42 Type 2 diabetes mellitus with diabetic polyneuropathy; L97.512 Non-pressure chronic ulcer of other part of right foot with fat layer exposed; L84 Corns and callosities; R23.4 Changes in skin texture; M86.171 Other acute osteomyelitis, right ankle and foot; F17.210 Nicotine dependence, cigarettes, uncomplicated | CPT/HCPCS: 11042 ==

== ENCOUNTER → 2024-07-20 08:34 | Outpatient (CLI) | payer OTHER, SELFPAY | PROVIDERS: PCP Family Medicine; Referring Provider Family Medicine; Visit Provider Surgery | DX: E11.621 Type 2 diabetes mellitus with foot ulcer (principal); E11.42 Type 2 diabetes mellitus with diabetic polyneuropathy; L97.512 Non-pressure chronic ulcer of other part of right foot with fat layer exposed; L84 Corns and callosities; F17.210 Nicotine dependence, cigarettes, uncomplicated; Z91.199 Patient's noncompliance with other medical treatment and regimen due to unspecified reason | CPT/HCPCS: 11042 ==

== ENCOUNTER → 2024-07-27 09:10 | Outpatient (CLI) | payer OTHER, SELFPAY | LOC: WC 09:10 | PROVIDERS: PCP Family Medicine; Referring Provider Emergency Medicine; Visit Provider Surgery | DX: E11.621 Type 2 diabetes mellitus with foot ulcer (principal); E11.42 Type 2 diabetes mellitus with diabetic polyneuropathy; L97.512 Non-pressure chronic ulcer of other part of right foot with fat layer exposed; L84 Corns and callosities; F17.210 Nicotine dependence, cigarettes, uncomplicated; Z91.199 Patient's noncompliance with other medical treatment and regimen due to unspecified reason; E66.3 Overweight | CPT/HCPCS: 11042 ==

== ENCOUNTER → 2024-08-03 15:25 | Outpatient (CLI) | payer OTHER, SELFPAY | LOC: WC 15:25 | PROVIDERS: PCP Family Medicine; Referring Provider Emergency Medicine; Visit Provider Surgery | DX: E11.621 Type 2 diabetes mellitus with foot ulcer (principal); E11.42 Type 2 diabetes mellitus with diabetic polyneuropathy; L97.512 Non-pressure chronic ulcer of other part of right foot with fat layer exposed; L84 Corns and callosities; F17.210 Nicotine dependence, cigarettes, uncomplicated; Z91.199 Patient's noncompliance with other medical treatment and regimen due to unspecified reason | CPT/HCPCS: 11042; 99213 ==

== ENCOUNTER → 2024-08-10 09:09 | Outpatient (CLI) | payer OTHER, SELFPAY | LOC: WC 09:09 | PROVIDERS: PCP Family Medicine; Referring Provider Emergency Medicine; Visit Provider Surgery | DX: E11.621 Type 2 diabetes mellitus with foot ulcer (principal); E11.42 Type 2 diabetes mellitus with diabetic polyneuropathy; L97.512 Non-pressure chronic ulcer of other part of right foot with fat layer exposed; L84 Corns and callosities; R23.4 Changes in skin texture; F17.210 Nicotine dependence, cigarettes, uncomplicated; Z91.199 Patient's noncompliance with other medical treatment and regimen due to unspecified reason | CPT/HCPCS: 11042 ==

== ENCOUNTER → 2024-08-17 08:52 | Outpatient (CLI) | payer OTHER, SELFPAY | LOC: WC 08:52 | PROVIDERS: PCP Family Medicine; Referring Provider Emergency Medicine; Visit Provider Surgery | DX: E11.621 Type 2 diabetes mellitus with foot ulcer (principal); E11.42 Type 2 diabetes mellitus with diabetic polyneuropathy; L97.512 Non-pressure chronic ulcer of other part of right foot with fat layer exposed; L84 Corns and callosities; R23.4 Changes in skin texture; F17.210 Nicotine dependence, cigarettes, uncomplicated; Z91.199 Patient's noncompliance with other medical treatment and regimen due to unspecified reason | CPT/HCPCS: 11042 ==

== ENCOUNTER → 2024-08-24 08:42 | Outpatient (CLI) | payer OTHER, SELFPAY | LOC: WC 08:42 | PROVIDERS: PCP Family Medicine; Referring Provider Emergency Medicine; Visit Provider Surgery | DX: E11.621 Type 2 diabetes mellitus with foot ulcer (principal); E11.42 Type 2 diabetes mellitus with diabetic polyneuropathy; L97.512 Non-pressure chronic ulcer of other part of right foot with fat layer exposed; L84 Corns and callosities; R23.4 Changes in skin texture; F17.210 Nicotine dependence, cigarettes, uncomplicated | CPT/HCPCS: 11042 ==

== ENCOUNTER → 2024-08-31 09:08 | Outpatient (CLI) | payer OTHER, SELFPAY | PROVIDERS: PCP Family Medicine; Referring Provider Emergency Medicine; Visit Provider Surgery | DX: E11.621 Type 2 diabetes mellitus with foot ulcer (principal); E11.42 Type 2 diabetes mellitus with diabetic polyneuropathy; L97.512 Non-pressure chronic ulcer of other part of right foot with fat layer exposed; L84 Corns and callosities; R23.4 Changes in skin texture; F17.210 Nicotine dependence, cigarettes, uncomplicated | CPT/HCPCS: 11042; 99213 ==

== ENCOUNTER → 2024-09-07 10:34 | Outpatient (CLI) | payer OTHER, SELFPAY | PROVIDERS: PCP Family Medicine; Referring Provider Family Medicine; Visit Provider Surgery | DX: E11.621 Type 2 diabetes mellitus with foot ulcer (principal); E11.42 Type 2 diabetes mellitus with diabetic polyneuropathy; L97.512 Non-pressure chronic ulcer of other part of right foot with fat layer exposed; R23.4 Changes in skin texture; L84 Corns and callosities; F17.210 Nicotine dependence, cigarettes, uncomplicated; E66.9 Obesity, unspecified | CPT/HCPCS: 11042 ==

== ENCOUNTER → 2024-09-14 08:34 | Outpatient (CLI) | payer OTHER, SELFPAY | PROVIDERS: PCP Family Medicine; Referring Provider Emergency Medicine; Visit Provider Surgery | DX: E11.621 Type 2 diabetes mellitus with foot ulcer (principal); E11.42 Type 2 diabetes mellitus with diabetic polyneuropathy; L97.512 Non-pressure chronic ulcer of other part of right foot with fat layer exposed; L84 Corns and callosities; R23.4 Changes in skin texture; F17.210 Nicotine dependence, cigarettes, uncomplicated; Z91.199 Patient's noncompliance with other medical treatment and regimen due to unspecified reason | CPT/HCPCS: 11042 ==

== ENCOUNTER → 2024-09-14 09:01 | Outpatient (CLI) | payer OTHER, SELFPAY ==
--- NOTE | 2024-09-14 09:02 | DI.RAD.S_ITS ---
PROCEDURE: XR FOOT RT MIN 3V INDICATIONS: eval osteo, wound on bottom of big toe on right TECHNIQUE: 3 views of the foot were acquired. COMPARISON: [facility], CR, XR FOOT 3+ VIEWS RIGHT, 04/14/2024, 8:19. [facility], CR, XR FOOT RT MIN 3V, 08/20/2023, 18:52. FINDINGS: Small soft tissue ulceration in the plantar 1st toe. Sclerosis and cortical irregularity of the 1st distal phalanx, unchanged from prior exam, likely representing sequela of prior osteomyelitis. Mild degenerative changes of the 1st interphalangeal joint. Small plantar calcaneal enthesophyte. No acute fracture or dislocation. IMPRESSION: Sequela of prior osteomyelitis in the 1st distal phalanx. Underlying chronic osteomyelitis cannot be excluded. Dictated by: Michell Teran M.D. on 09/14/2024 at 11:22 Approved by: Michell Teran M.D. on 09/14/2024 at 11:25
== END ==
PROVIDERS: PCP Family Medicine; Referring Provider Surgery; Visit Provider Surgery
DX: E11.621 Type 2 diabetes mellitus with foot ulcer (principal); L97.519 Non-pressure chronic ulcer of other part of right foot with unspecified severity; M86.9 Osteomyelitis, unspecified; E11.42 Type 2 diabetes mellitus with diabetic polyneuropathy; L97.512 Non-pressure chronic ulcer of other part of right foot with fat layer exposed; L84 Corns and callosities; R23.4 Changes in skin texture; F17.210 Nicotine dependence, cigarettes, uncomplicated; Z91.199 Patient's noncompliance with other medical treatment and regimen due to unspecified reason
CPT/HCPCS: 11042; 73630

== ENCOUNTER → 2024-09-21 08:31 | Outpatient (CLI) | payer OTHER, SELFPAY | PROVIDERS: PCP Family Medicine; Referring Provider Emergency Medicine; Visit Provider Surgery | DX: E11.621 Type 2 diabetes mellitus with foot ulcer (principal); E11.42 Type 2 diabetes mellitus with diabetic polyneuropathy; L97.512 Non-pressure chronic ulcer of other part of right foot with fat layer exposed; L84 Corns and callosities; R23.4 Changes in skin texture; F17.210 Nicotine dependence, cigarettes, uncomplicated | CPT/HCPCS: 11042 ==

== ENCOUNTER → 2024-09-28 09:26 | Outpatient (CLI) | payer OTHER, SELFPAY | PROVIDERS: PCP Family Medicine; Referring Provider Emergency Medicine; Visit Provider Surgery | DX: E11.621 Type 2 diabetes mellitus with foot ulcer (principal); E11.42 Type 2 diabetes mellitus with diabetic polyneuropathy; L97.512 Non-pressure chronic ulcer of other part of right foot with fat layer exposed; L84 Corns and callosities; R23.4 Changes in skin texture; F17.210 Nicotine dependence, cigarettes, uncomplicated | CPT/HCPCS: 11042; 99213 ==

== ENCOUNTER → 2024-10-05 08:44 | Outpatient (CLI) | payer OTHER, SELFPAY | LOC: WC 08:44 | PROVIDERS: PCP Family Medicine; Referring Provider Emergency Medicine; Visit Provider Surgery | DX: E11.621 Type 2 diabetes mellitus with foot ulcer (principal); E11.42 Type 2 diabetes mellitus with diabetic polyneuropathy; L97.512 Non-pressure chronic ulcer of other part of right foot with fat layer exposed; L84 Corns and callosities; R23.4 Changes in skin texture; F17.210 Nicotine dependence, cigarettes, uncomplicated; E66.9 Obesity, unspecified; Z68.33 Body mass index [BMI] 33.0-33.9, adult; Z91.199 Patient's noncompliance with other medical treatment and regimen due to unspecified reason | CPT/HCPCS: 11042 ==

== ENCOUNTER → 2024-10-12 07:46 | Outpatient (CLI) | payer OTHER, SELFPAY ==
[2024-10-12 09:05] LABS: Alanine Aminotransferase 34 IU/L (<50); Albumin 4.2 g/dL (3.5-5.0); Albumin Globulin Ratio 1.5 (1.0-2.8); Alkaline Phosphatase 60 U/L (38-126); Aspartate Aminotransferase 27 IU/L (17-59); BUN Creatinine Ratio 20.5 (6-22); Blood Urea Nitrogen 16 mg/dL (9-20); Calcium 9.3 mg/dL (8.4-10.2); Carbon Dioxide 26 mmol/L (22-32); Chloride 101 mmol/L (98-107); Creatine Kinase 241 U/L (55-170); Estimated Glomerular Filt Rate > 60 mL/min (>60); Globulin 2.8 g/dL (1.7-4.1); Glucose 152 mg/dL (70-100); HEMOLYSIS 17 (0-50); Potassium 4.5 mmol/L (3.4-5.1); Sodium 132 mmol/L (137-145)
[2024-10-12 09:08] LABS: Hemoglobin A1C% w Est Avg Glu 6.3 % (4.0-6.0)
[2024-10-12 09:29] LABS: Creatinine Urine Random 154.34 mg/dL
[2024-10-12 09:34] LABS: Microalbumin Urine Random 8.1 mg/dL (0-1.6)
== END ==
LOC: LAB 07:47
PROVIDERS: PCP Family Medicine; Referring Provider Family Medicine; Visit Provider Family Medicine
DX: R74.8 Abnormal levels of other serum enzymes (principal); E11.9 Type 2 diabetes mellitus without complications
CPT/HCPCS: 36415; 80053; 82043; 82550; 82570; 83036

== ENCOUNTER → 2024-10-19 08:45 | Outpatient (CLI) | payer OTHER, SELFPAY | PROVIDERS: PCP Family Medicine; Referring Provider Emergency Medicine; Visit Provider Surgery | DX: E11.621 Type 2 diabetes mellitus with foot ulcer (principal); E11.42 Type 2 diabetes mellitus with diabetic polyneuropathy; L97.512 Non-pressure chronic ulcer of other part of right foot with fat layer exposed; L84 Corns and callosities; R23.4 Changes in skin texture; F17.210 Nicotine dependence, cigarettes, uncomplicated; E66.9 Obesity, unspecified; Z68.33 Body mass index [BMI] 33.0-33.9, adult; Z91.199 Patient's noncompliance with other medical treatment and regimen due to unspecified reason | CPT/HCPCS: 11042 ==

== ENCOUNTER → 2024-10-26 11:21 | Outpatient (CLI) | payer OTHER, SELFPAY | LOC: WC 11:21 | PROVIDERS: PCP Family Medicine; Referring Provider Family Medicine; Visit Provider Surgery | DX: E11.42 Type 2 diabetes mellitus with diabetic polyneuropathy (principal); E11.621 Type 2 diabetes mellitus with foot ulcer; L97.512 Non-pressure chronic ulcer of other part of right foot with fat layer exposed; L84 Corns and callosities; R23.4 Changes in skin texture; F17.210 Nicotine dependence, cigarettes, uncomplicated; E66.9 Obesity, unspecified; Z68.33 Body mass index [BMI] 33.0-33.9, adult | CPT/HCPCS: 11042; 99213 ==

== ENCOUNTER → 2024-11-02 09:00 | Outpatient (CLI) | payer OTHER, SELFPAY | PROVIDERS: PCP Family Medicine; Referring Provider Emergency Medicine; Visit Provider Surgery | DX: E11.621 Type 2 diabetes mellitus with foot ulcer (principal); E11.42 Type 2 diabetes mellitus with diabetic polyneuropathy; L97.512 Non-pressure chronic ulcer of other part of right foot with fat layer exposed; L84 Corns and callosities; R23.4 Changes in skin texture; F17.210 Nicotine dependence, cigarettes, uncomplicated | CPT/HCPCS: 11042 ==

== ENCOUNTER → 2024-11-09 09:16 | Outpatient (CLI) | payer OTHER, SELFPAY | LOC: WC 09:17 | PROVIDERS: PCP Family Medicine; Referring Provider Emergency Medicine; Visit Provider Surgery | DX: E11.621 Type 2 diabetes mellitus with foot ulcer (principal); L97.512 Non-pressure chronic ulcer of other part of right foot with fat layer exposed; L84 Corns and callosities; R23.4 Changes in skin texture; M86.171 Other acute osteomyelitis, right ankle and foot; E11.40 Type 2 diabetes mellitus with diabetic neuropathy, unspecified | CPT/HCPCS: 11042 ==

== ENCOUNTER → 2024-11-16 08:55 | Outpatient (CLI) | payer OTHER, SELFPAY | LOC: WC 08:56 | PROVIDERS: PCP Family Medicine; Referring Provider Emergency Medicine; Visit Provider Surgery | DX: E11.621 Type 2 diabetes mellitus with foot ulcer (principal); L97.512 Non-pressure chronic ulcer of other part of right foot with fat layer exposed; M86.171 Other acute osteomyelitis, right ankle and foot; E11.42 Type 2 diabetes mellitus with diabetic polyneuropathy; L84 Corns and callosities; R23.4 Changes in skin texture; E11.40 Type 2 diabetes mellitus with diabetic neuropathy, unspecified | CPT/HCPCS: 11042 ==

== ENCOUNTER → 2024-11-30 10:32 | Outpatient (CLI) | payer OTHER, SELFPAY | LOC: WC 10:33 | PROVIDERS: PCP Family Medicine; Referring Provider Emergency Medicine; Visit Provider Surgery | DX: E11.621 Type 2 diabetes mellitus with foot ulcer (principal); L97.512 Non-pressure chronic ulcer of other part of right foot with fat layer exposed; M86.171 Other acute osteomyelitis, right ankle and foot; E11.42 Type 2 diabetes mellitus with diabetic polyneuropathy; R23.4 Changes in skin texture; L84 Corns and callosities; F17.200 Nicotine dependence, unspecified, uncomplicated | CPT/HCPCS: 11042; 99213 ==

== ENCOUNTER → 2024-12-07 09:45 | Outpatient (CLI) | payer OTHER, SELFPAY | LOC: WC 09:46 | PROVIDERS: PCP Family Medicine; Referring Provider Emergency Medicine; Visit Provider Surgery | DX: E11.42 Type 2 diabetes mellitus with diabetic polyneuropathy (principal); E11.621 Type 2 diabetes mellitus with foot ulcer; L97.512 Non-pressure chronic ulcer of other part of right foot with fat layer exposed; L84 Corns and callosities; R23.4 Changes in skin texture; F17.210 Nicotine dependence, cigarettes, uncomplicated; Z91.199 Patient's noncompliance with other medical treatment and regimen due to unspecified reason; E66.01 Morbid (severe) obesity due to excess calories; Z68.34 Body mass index [BMI] 34.0-34.9, adult | CPT/HCPCS: 11042 ==

== ENCOUNTER → 2024-12-14 09:05 | Outpatient (CLI) | payer OTHER, SELFPAY | LOC: WC 09:06 | PROVIDERS: PCP Family Medicine; Referring Provider Emergency Medicine; Visit Provider Surgery | DX: E11.621 Type 2 diabetes mellitus with foot ulcer (principal); L97.512 Non-pressure chronic ulcer of other part of right foot with fat layer exposed; M86.171 Other acute osteomyelitis, right ankle and foot; E11.42 Type 2 diabetes mellitus with diabetic polyneuropathy; L84 Corns and callosities | CPT/HCPCS: 11042 ==

== ENCOUNTER → 2024-12-21 08:59 | Outpatient (CLI) | payer OTHER, SELFPAY | LOC: WC 09:02 | PROVIDERS: PCP Family Medicine; Referring Provider Emergency Medicine; Visit Provider Surgery | DX: E11.621 Type 2 diabetes mellitus with foot ulcer (principal); L97.512 Non-pressure chronic ulcer of other part of right foot with fat layer exposed; M86.171 Other acute osteomyelitis, right ankle and foot; E11.42 Type 2 diabetes mellitus with diabetic polyneuropathy; L84 Corns and callosities; R23.4 Changes in skin texture; Z72.0 Tobacco use | CPT/HCPCS: 11042 ==

== ENCOUNTER → 2024-12-28 08:43 | Outpatient (CLI) | payer OTHER, SELFPAY | LOC: WC 08:44 | PROVIDERS: PCP Family Medicine; Referring Provider Emergency Medicine; Visit Provider Surgery | DX: E11.621 Type 2 diabetes mellitus with foot ulcer (principal); L97.512 Non-pressure chronic ulcer of other part of right foot with fat layer exposed; M86.68 Other chronic osteomyelitis, other site; L84 Corns and callosities; E11.40 Type 2 diabetes mellitus with diabetic neuropathy, unspecified; F17.200 Nicotine dependence, unspecified, uncomplicated | CPT/HCPCS: 11042; 99213 ==

== ENCOUNTER → 2025-01-03 10:31 | Outpatient (CLI) | payer OTHER, SELFPAY | LOC: WC 10:32 | PROVIDERS: PCP Family Medicine; Referring Provider Family Medicine; Visit Provider Surgery | DX: E11.621 Type 2 diabetes mellitus with foot ulcer (principal); L97.512 Non-pressure chronic ulcer of other part of right foot with fat layer exposed; L84 Corns and callosities; M86.171 Other acute osteomyelitis, right ankle and foot; E11.40 Type 2 diabetes mellitus with diabetic neuropathy, unspecified | CPT/HCPCS: 11042 ==

== ENCOUNTER → 2025-01-10 09:57 | Outpatient (CLI) | payer OTHER, SELFPAY ==
--- NOTE | 2025-01-10 | OV.WND_ITS ---
PROGRESS NOTE DETAILS PATIENT NAME: LOIDA CHANDLER PATIENT NUMBER: [id number] CLINICIAN: ENZO SOTOMAYOR PATIENT DATE OF : 1985 PHYSICIAN / INDEPENDENT TRADER: SANDI KELLY PATIENT SUBJECTIVE CHIEF COMPLAINT THIS INFORMATION WAS OBTAINED FROM THE PATIENT. NO COMPLAINTS ALLERGIES COCONUT HPI THIS INFORMATION WAS OBTAINED FROM THE PATIENT. THE FOLLOWING HPI ELEMENTS WERE DOCUMENTED FOR THE PATIENT'S WOUND: LOCATION: R GREAT TOE DURATION: 05/20/23 CONTEXT: DFU WITH OSTEO THE PATIENT IS A 39 YEAR OLD MALE WITH DIABETES, OBESITY, AND NEUROPATHY WHO RETURNS TODAY FOR FOLLOW UP OF A RECURRENT DIABETIC ULCER WITH OSTEOMYELITIS OF THE RIGHT GREAT TOE. THE PATIENT IS RECEIVING DRESSING CHANGES WITH HYDROFERA BLUE EVERY OTHER DAY WITH A DEFENDER BOOT HOWEVER HE IS NOT ROUTINELY USING THE BOOT. HIS WORK PLACE WILL NOT ALLOW THE USE OF A WEDGE OFFLOADING SHOE OR A TCC. IMAGING STUDIES IN SEPTEMBER 08, 2023 SUGGESTED OSTEOMYELITIS AND HE COMPLETED A COURSE OF IV DAPTOMYCIN ON 09/12 AND HAS REMAINED ON CEFADROXIL. THE PATIENT DENIES HAVING ANY PAIN NOR HAS HE NOTED ANY REDNESS, SWELLING, OR DRAINAGE. NO FEVER OR CHILLS. THE PATIENT REPORTS APPETITE HAS DECREASED SINCE STARTING OZEMPIC AND HE HAS LOST ABOUT 90 LBS. HE IS NOT ROUTINELY CHECKING HIS BLOOD SUGARS. THE PATIENTHAS NOT HAD ANY CIGARETTES FOR THE PAST 3 WEEKS. ABIS SHOW FLOW ADEQUATE FOR HEALING. ON EXAM TODAY THE ULCER ON THE RIGHT GREAT TOE MEASURES LARGER, NO SWELLING OR ERYTHEMA. SLIGHT MACERATION OF PERIWOUND SKIN. CULTURE 03/23/24 GREW STREP GROUP B. THE PATIENT IS FOLLOWED BY DR. GARCIA AND REMAINS ON CEFADROXIL. HEMOGLOBIN A1C ON 10/12/24 IS DOWN TO 6.3. THE PATIENT IS STILL NOT INTERESTED IN USING ANY OTHER TYPE OF PRESSURE OFFLOADING OR PURSUING HYPERBARIC OXYGEN THERAPY. HE WAS APPROVED FOR THE USE OF APLIGRAF HOWEVER HE DOES HAVE A VERY HIGH COPAY. LABS: 03/23/24: CULTURE GREW STREP GROUP B 02/19/24: WBC 15.4, HEMOGLOBIN 16.5, HCT 48.3, ELECTROLYTES UNREMARKABLE, GFR GREATER THAN 60, LFTS NORMAL 12/13/23: HEMOGLOBIN A1C 7.1 09/08/23: A1C 7.8 08/20/23: CULTURES GREW STAPHYLOCOCCUS AUREUS AND STREPTOCOCCUS GROUP B 08/20/23: WBC 14.4, HEMOGLOBIN 14.7, HCT 43.7, ELECTROLYTES UNREMARKABLE, GFR GREATER THAN 60, C- REACTIVE PROTEIN 1.8 08/20/23: X-RAY RIGHT FOOT SHOWED SCLEROSIS AND LUCENCY WITHIN THE DISTAL 1ST PHALANX SUGGESTIVE OF OSTEOMYELITIS LOIDA CHANDLER [id number] 1985 MEDICAL HISTORY THIS INFORMATION WAS OBTAINED FROM THE PATIENT. PATIENT HAS A MEDICAL HISTORY OF: HYPERTENSION TYPE II DIABETES HYPERLIPIDEMIA MORBID OBESITY GRADE A2 ALBUMINURIA ADDITIONAL INFORMATION DOES PATIENT HAVE A HISTORY OF CANCER? YES? COMPLETE ALL QUESTIONS.: NO SURGICAL HISTORY THIS INFORMATION WAS OBTAINED FROM THE PATIENT. PATIENT HAS A SURGICAL HISTORY OF: UNKNOWN ABDOMINAL SURGERY 1988- OBJECTIVE VITALS HEIGHT/LENGTH: 76 IN (193.04 CM), WEIGHT: 279 LBS (126.82 KGS), BMI: 34, TEMPERATURE: 98.4 ?F (36.89 ?C), PULSE: 88 BPM, RESPIRATORY RATE: 16 BREATHS/MIN, BLOOD PRESSURE: 157/107 MMHG, PULSE OXIMETRY: 98 %. PHYSICAL EXAM CONSTITUTIONAL: VITAL SIGNS REVIEWED AND NOTED. WELL DEVELOPED, WELL NOURISHED, AND IN NO ACUTE DISTRESS. ALERT AND ORIENTED X3. RESPIRATORY: EVEN RESPIRATIONS WITHOUT USE OF ACCESSORY MUSCLES. NO INTERCOASTAL RETRACTIONS NOTED. EVEN AND NON LABORED RESPIRATION. INTEGUMENTARY (HAIR, SKIN): SLIGHT MACERATION OF PERIWOUND SKIN, PERIWOUND CALLUS. NO SWELLING OR TENDERNESS. SEE WOUND ASSESSMENT. SKIN WARM AND DRY. NO RASHES. NEUROLOGICAL: DECREASED LOWER EXTREMITY SENSATION. PSYCHIATRIC: ORIENTATION TO TIME, PLACE AND PERSON: NORMAL AFFECT WITH NORMAL THOUGHT PATTERN. ADDITIONAL INFORMATION THE PATIENT'S POTENTIAL TO HEAL IS: POOR. WOUND ASSESSMENT(S) WOUND #4 RIGHT HALLUX IS A CHRONIC MENDEZ GRADE 2 DIABETIC ULCER ACQUIRED ON 05/11/2024 AND HAS RECEIVED A STATUS OF NOT HEALED. INITIAL WOUND ENCOUNTER MEASUREMENTS ARE 0.4CM LENGTH X 0.5CM WIDTH X 0.3 CM DEPTH, WITH AN AREA OF 0.2 SQ CM AND A VOLUME OF 0.06 CUBIC CM.INITIAL WOUND ENCOUNTER PREVIOUS MEASUREMENTS FROM 01/03/2025 ARE 0.2CM LENGTH X 0.5CM WIDTH X 0.3CM DEPTH, WITH AN AREA OF 0.1 SQ CM AND A VOLUME OF 0.03 CUBIC CM. ADIPOSE IS EXPOSED. NO TUNNELING HAS BEEN NOTED. NO SINUS TRACT HAS BEEN NOTED. UNDERMINING HAS BEEN NOTED AT 12:00 AND ENDS AT 6:00 WITH A MAXIMUM DISTANCE OF 0.3CM. THERE IS A SMALL AMOUNT OF SEROSANGUINEOUS DRAINAGE NOTED WHICH HAS NO ODOR. THE PATIENT REPORTS A WOUND PAIN OF LEVEL 0/10. THE WOUND MARGIN IS UNATTACHED WOUND BED HAS NO, GRANULATION, YES SLOUGH, NO ESCHAR, NO EPITHELIALIZATION. LOIDA CHANDLER [id number] 1985 THE PERIWOUND SKIN EXHIBITED CALLUS. THE PERIWOUND SKIN DID NOT EXHIBIT BRAWNY INDURATION, EDEMA, EXCORIATION, INDURATION, CREPITUS, FLUCTUANCE, RASH, MACERATION, ATROPHIE HARISH, CYANOSIS, ECCHYMOSIS, ERYTHEMA, HEMOSIDEROSIS, PALLOR AND RUBOR. THE PERIWOUND SKIN WAS DRY/SCALY. THE PERIWOUND SKIN WAS NOT FRIABLE AND MOIST. THE TEMPERATURE OF THE PERIWOUND SKIN IS WNL. PERIWOUND SKIN DOES NOT EXHIBIT SIGNS OR SYMPTOMS OF INFECTION. LOCAL PULSE IS PALPABLE. ADDITIONAL INFORMATION OTHER DEVITALIZED TISSUE PRESENT: BIOFILM ASSESSMENT ACTIVE PROBLEMS ICD-10 (ENCOUNTER DIAGNOSIS) E11.621 - TYPE 2 DIABETES MELLITUS WITH FOOT ULCER (ENCOUNTER DIAGNOSIS) E11.42 - TYPE 2 DIABETES MELLITUS WITH DIABETIC POLYNEUROPATHY (ENCOUNTER DIAGNOSIS) M86.171 - OTHER ACUTE OSTEOMYELITIS, RIGHT ANKLE AND FOOT (ENCOUNTER DIAGNOSIS) L97.512 - NON-PRESSURE CHRONIC ULCER OF OTHER PART OF RIGHT FOOT WITH FAT LAYER EXPOSED GENERAL NOTES RECURRENT DIABETIC ULCER RIGHT GREAT TOE MEASURES LARGER THE FOLLOWING FACTORS HAVE BEEN IDENTIFIED THAT MAY AFFECT WOUND HEALING: DEVITALIZED TISSUE BIOFILM NEUROPATHY DIABETES PRESSURE OBESITY CIGARETTE USE NONCOMPLIANCE GOALS: REMOVED DEVITALIZED TISSUE REMOVE AND PREVENT BIOFILM PRESSURE OFFLOADING MANAGE COMORBIDITIES TREAT INFECTION PLAN: DEBRIDEMENT, CONTINUE DRESSING CHANGES WITH HYDROFERA BLUE EVERY OTHER DAY WITH DEFENDER BOOT FOR PRESSURE OFFLOADING. FOLLOW UP IN 1 WEEK FOR RECHECK. CONTINUE CEFADROXIL. UNLIKELY TO HEAL WITHOUT ADEQUATE PRESSURE OFFLOADING. PROCEDURES WOUND #4 WOUND #4 (DIABETIC ULCER) IS LOCATED ON THE RIGHT HALLUX. A SKIN/SUBCUTANEOUS TISSUE LEVEL SURGICAL DEBRIDEMENT WITH A TOTAL AREA DEBRIDED OF 1.65 SQ CM. WAS PERFORMED BY SANDI KELLY MD. SUBCUTANEOUS WAS REMOVED ALONG WITH DEVITALIZED TISSUE: BIOFILM, EXUDATE AND SLOUGH. THE FOLLOWING INSTRUMENT(S) WERE USED: CURETTE. PAIN CONTROL WAS ACHIEVED USING EMLA LIDOCAINE/PRILOCAINE 2.5%/2.5%. A TIME OUT WAS CONDUCTED PRIOR TO THE START OF THE PROCEDURE. A MINIMAL AMOUNT OF BLEEDING WAS CONTROLLED WITH SILVER NITRATE. THE PROCEDURE WAS TOLERATED WELL WITH A PAIN LEVEL OF 0 THROUGHOUT AND A PAIN LEVEL OF 0 FOLLOWING THE PROCEDURE. POST DEBRIDEMENT MEASUREMENTS: 1.1CM RAMESH LOIDA Wong [id number] 1985 LENGTH X 1.5CM WIDTH X 0.4CM DEPTH; WITH AN AREA OF 1.65 SQ CM AND A VOLUME OF 0.66 CUBIC CM. ADDITIONAL INFORMATION MUSCLE FASCIA OR BONE REMOVED AND SENT TO PATHOLOGY?: NO PLAN WOUND ORDERS: WOUND #4 RIGHT HALLUX HAND HYGIENE HAND HYGIENE - WASH HANDS BEFORE AND AFTER WOUND CARE. CALL THE WOUND CENTER AT [phone] IF YOU HAVE SIGNS OR SYMPTOMS OF INFECTION, FEVER CHILLS OR SHAKES, INCREASED DRAINAGE, INCREASED ODOR OR UNUSUAL REDNESS. AFTER WOUND CENTER HOURS PLEASE NOTIFY YOUR PCP OR GO TO THE EMERGENCY ROOM. CLEANSER CLEANSE WOUND WITH NORMAL SALINE - MAY USE VASHE MAY SHOWER, LEAVE WOUND DRESSING INTACT. COVER WOUND DRESSING WITH A WATERPROOF BARRIER. KEEP DRESSING DRY. NO BATHS PLEASE. PROCEDURE / ANESTHETIC 2% TOPICAL LIDOCAINE TO WOUND BED PRIOR TO PROCEDURE, IN CLINIC ONLY. DRESSING ORDERS APPLY DRESSING(S) AND SECURE WITH: - HYDROFERA BLUE FOAM AND HYPAFIX TAPE. DRESSING CHANGE FREQUENCY CHANGE DRESSING EVERY OTHER DAY. IF DRESSING BECOMES SOILED OR WET CONTACT THE WOUND CENTER AT [phone]. OFF-LOADING / PRESSURE RELIEF USE/WEAR WHEN WALKING: - FELT ADHESIVE PAD SURROUNDING WOUND. FOOT DEFENDER BOOT. OTHER ORDER: - KEEP WEIGHT OFF FOOT ULCER MUCH POSSIBLE. ADDITIONAL ORDERS: DIETARY TAKE VITAMIN C 1000MG BY MOUTH DAILY. TAKE ZINC 25MG BY MOUTH DAILY. FOLLOW A DIABETIC DIET. INCREASE THE PROTEIN IN YOUR DIET. - AIDS IN WOUND HEALING. OTHER NUTRITIONAL SUPPLEMENT: - AIM FOR ADDITIONAL 30 GRAMS TWICE DAILY. FOLLOW-UP APPOINTMENTS RETURN APPOINTMENT 1 WEEK SCRIBING ATTESTATION I ATTEST, THE NURSE, THAT I SCRIBED THESE ORDERS FOR THE WOUND CARE PROVIDER. PROVIDER REVIEW AND ATTESTATION: REVIEWED AND EVALUATED LABS. REVIEWED HOSPITAL RECORDS. DISCUSSED THE PLAN OF CARE @ BEDSIDE WITH - THE PATIENT SMOKING CESSATION WAS ENCOURAGED. PLACE PATIENT ON PALLIATIVE CARE DUE TO: - INADEQUATE PRESSURE OFFLOADING, CIGARETTE USE, CHRONIC OSTEOMYELITIS I AGREE AND ATTEST TO THE ABOVE INFORMATION PROVIDED FROM OTHER LICENSED PROFESSIONALS. PLAN OF CARE: 01. ENSURE/ESTABLISH OPTIMAL BLOOD FLOW : - COMPLETE LOWER EXTREMITY ASSESSMENT STATUS: CONTINUED DATE: 12/28/2024 - PERFORM NON-INVASIVE VASCULAR TESTING (I.E. [place]) AND DOCUMENT FINDINGS. CONSIDER REPEATING WHEN WOUND HEALING <40% AFTER 30 DAYS OF WOUND CARE. STATUS: COMPLETED DATE: 09/08/2023 02. ASSESS FOR/TREAT INFECTION : LOIDA CHANDLER [id number] 1985 - EVALUATE FOR SIGNS AND SYMPTOMS OF INFECTION AND DOCUMENT FINDINGS. STATUS: CONTINUED DATE: 12/28/2024 03. DEBRIDE WEEKLY OR MORE OFTEN PRN : - EVALUATE PATIENT IN CENTER WEEKLY TO ASSESS WOUND BED AND MARGINS FOR NEED FOR DEBRIDEMENT. STATUS: CONTINUED DATE: 12/28/2024 - DEBRIDEMENT BY ANY METHOD TO REMOVE DEVITALIZED/NECROTIC TISSUE TO PROMOTE HEALING AND PREVENT FURTHER COMPLICATIONS. GOAL IS TO STIMULATE AND/OR MAINTAIN ACUTE PHASE OF WOUND HEALING BY REDUCING BACTERIAL BURDEN AND DEVITALIZED/NON-VIABLE TISSUE. STATUS: CONTINUED DATE: 12/28/2024 04. OPTIMIZE GLUCOSE CONTROL AND NUTRITION : - ORDER/REVIEW PERTINENT LABS TO EVALUATE RENAL FUNCTION, GLUCOSE CONTROL, AND NUTRITIONAL STATUS. STATUS: CONTINUED DATE: 12/28/2024 - COMPLETE A NUTRITION RISK ASSESSMENT. STATUS: COMPLETED DATE: 09/08/2023 05. OFFLOADING PLAN : - EVALUATE PLAN FOR OFFLOADING STATUS: CONTINUED DATE: 12/28/2024 - ASSESS TOLERANCE AND COMPLIANCE OF OFFLOADING. STATUS: CONTINUED DATE: 12/28/2024 - ORDER/REVIEW RADIOLOGY TESTS FOR SUSPECTED INFECTION, SIGNIFICANT FINDINGS, OR WHEN STRUCTURE PRESENT AND/OR ULCER LOCATED OVER BONY PROMINENCE. STATUS: CONTINUED DATE: 12/28/2024 06. OPTIMIZE HOST FACTORS: - REVIEWED, NOT APPLICABLE 07. DRESSING SELECTION : - EVALUATE FOR DRESSING-RELATED FACTORS, SUCH AVAILABILITY, WEAR TIME, ADAPTABILITY AND USE TO BETTER OPTIMIZE WOUND HEALING AND PATIENT COMPLIANCE. STATUS: CONTINUED DATE: 12/28/2024 - EDUCATE THE PATIENT/FAMILY/CAREGIVER TO MONITOR DRESSING DAILY. CHANGE DRESSING ONLY NEEDED BUT NEVER LESS FREQUENTLY THAN WEEKLY SO THAT WOUND BED CAN BE REASSESSED. STATUS: CONTINUED DATE: 12/28/2024 08. ADVANCED MODALITIES : - REVIEWED, NOT APPLICABLE 09. FALL PREVENTION : - REVIEWED, NOT APPLICABLE 10. PAIN MANAGEMENT : - COMPLETE PAIN ASSESSMENT STATUS: CONTINUED DATE: 12/28/2024 11. MEASURABLE GOALS FOR WOUND HEALING AND/OR HYPERBARIC OXYGEN THERAPY : - IMPROVE QUALITY OF LIFE STATUS: CONTINUED DATE: 12/28/2024 - IMPLEMENT PROTOCOLS TO PROMOTE HEALING AND IMPEDE FURTHER INJURY STATUS: CONTINUED DATE: 12/28/2024 12. DURATION/FREQUENCY OF WOUND CARE VISITS : - 1X WEEKLY FOR 30 DAYS STATUS: CONTINUED DATE: 12/28/2024 ELECTRONIC SIGNATURE(S) LOIDA CHANDLER [id number] 1985 SIGNED BY: DATE: SANDI KELLY MD 01/10/2025 15:58:23 (PT) ENTERED BY: SANDI KELLY MD ON 01/10/2025 12:24:15 (PT) LOIDA CHANDLER [id number] 1985
== END ==
LOC: WC 09:58
PROVIDERS: PCP Family Medicine; Referring Provider Family Medicine; Visit Provider Surgery
DX: E11.621 Type 2 diabetes mellitus with foot ulcer (principal); L97.512 Non-pressure chronic ulcer of other part of right foot with fat layer exposed; M86.171 Other acute osteomyelitis, right ankle and foot; E11.40 Type 2 diabetes mellitus with diabetic neuropathy, unspecified; L84 Corns and callosities; R23.4 Changes in skin texture; F17.200 Nicotine dependence, unspecified, uncomplicated
CPT/HCPCS: 11042

== ENCOUNTER → 2025-01-17 09:50 | Outpatient (CLI) | payer OTHER, SELFPAY | LOC: WC 09:51 | PROVIDERS: PCP Family Medicine; Referring Provider Family Medicine; Visit Provider Surgery | DX: E11.621 Type 2 diabetes mellitus with foot ulcer (principal); L97.512 Non-pressure chronic ulcer of other part of right foot with fat layer exposed; L84 Corns and callosities; R23.4 Changes in skin texture; E11.42 Type 2 diabetes mellitus with diabetic polyneuropathy; M86.171 Other acute osteomyelitis, right ankle and foot | CPT/HCPCS: 11042 ==

== ENCOUNTER → 2025-01-31 09:53 | Outpatient (CLI) | payer OTHER, SELFPAY | LOC: WC 09:53 | PROVIDERS: PCP Family Medicine; Referring Provider Family Medicine; Visit Provider Surgery | DX: E11.621 Type 2 diabetes mellitus with foot ulcer (principal); L97.512 Non-pressure chronic ulcer of other part of right foot with fat layer exposed; L84 Corns and callosities; E11.42 Type 2 diabetes mellitus with diabetic polyneuropathy; M86.171 Other acute osteomyelitis, right ankle and foot | CPT/HCPCS: 11042; 99213 ==

== ENCOUNTER → 2025-02-07 11:06 | Outpatient (CLI) | payer OTHER, SELFPAY | LOC: WC 11:07 | PROVIDERS: PCP Family Medicine; Referring Provider Family Medicine; Visit Provider Surgery | DX: E11.621 Type 2 diabetes mellitus with foot ulcer (principal); L97.512 Non-pressure chronic ulcer of other part of right foot with fat layer exposed; E11.42 Type 2 diabetes mellitus with diabetic polyneuropathy; M86.171 Other acute osteomyelitis, right ankle and foot; L84 Corns and callosities | CPT/HCPCS: 11042 ==

== ENCOUNTER → 2025-02-14 08:48 | Outpatient (CLI) | payer OTHER, SELFPAY | PROVIDERS: PCP Family Medicine; Referring Provider Family Medicine; Visit Provider Surgery | DX: L97.512 Non-pressure chronic ulcer of other part of right foot with fat layer exposed (principal); M86.171 Other acute osteomyelitis, right ankle and foot; L84 Corns and callosities; E11.40 Type 2 diabetes mellitus with diabetic neuropathy, unspecified | CPT/HCPCS: 11042 ==

== ENCOUNTER → 2025-02-21 09:18 | Outpatient (CLI) | payer OTHER, SELFPAY | LOC: WC 09:19 | PROVIDERS: PCP Family Medicine; Referring Provider Family Medicine; Visit Provider Surgery | DX: E11.621 Type 2 diabetes mellitus with foot ulcer (principal); E11.42 Type 2 diabetes mellitus with diabetic polyneuropathy; L97.512 Non-pressure chronic ulcer of other part of right foot with fat layer exposed; M86.171 Other acute osteomyelitis, right ankle and foot; E66.9 Obesity, unspecified; Z68.35 Body mass index [BMI] 35.0-35.9, adult | CPT/HCPCS: 11042 ==

== ENCOUNTER → 2025-02-28 08:52 | Outpatient (CLI) | payer OTHER, SELFPAY | LOC: WC 08:53 | PROVIDERS: PCP Family Medicine; Referring Provider Family Medicine; Visit Provider Surgery | DX: E11.621 Type 2 diabetes mellitus with foot ulcer (principal); E11.42 Type 2 diabetes mellitus with diabetic polyneuropathy; L97.512 Non-pressure chronic ulcer of other part of right foot with fat layer exposed; L84 Corns and callosities; M86.171 Other acute osteomyelitis, right ankle and foot; E66.01 Morbid (severe) obesity due to excess calories; Z68.35 Body mass index [BMI] 35.0-35.9, adult | CPT/HCPCS: 11042; 99213 ==

== ENCOUNTER → 2025-03-07 08:32 | Outpatient (CLI) | payer OTHER, SELFPAY | PROVIDERS: PCP Family Medicine; Referring Provider Family Medicine; Visit Provider Surgery | DX: E11.621 Type 2 diabetes mellitus with foot ulcer (principal); E11.42 Type 2 diabetes mellitus with diabetic polyneuropathy; L97.512 Non-pressure chronic ulcer of other part of right foot with fat layer exposed; L84 Corns and callosities; M86.171 Other acute osteomyelitis, right ankle and foot; E66.9 Obesity, unspecified; Z68.35 Body mass index [BMI] 35.0-35.9, adult | CPT/HCPCS: 11042; 87070; 87077; 87186; 87205; 99213 ==

== ENCOUNTER → 2025-03-11 07:36 | Outpatient (CLI) | payer OTHER, SELFPAY ==
--- NOTE | 2025-03-11 07:37 | DI.MRI.S_ITS ---
PROCEDURE: MR FOOT RT WO/W CON INDICATIONS: osteomyelitits TECHNIQUE: Noncontrast coronal T1 spin echo and STIR, sagittal T1 spin echo with fat saturation and STIR, axial T1 spin echo and T2 fast spin echo with fat saturation. After the administration of contrast, axial/sagittal/coronal T1 spin echo with fat saturation through the right foot . COMPARISON: [facility], CR, XR FOOT RT MIN 3V, 09/14/2024, 9:06. FINDINGS: Image quality: Excellent. Bones: Marrow edema involving 1st proximal and distal phalanges with bony erosive changes involving 1st distal phalangeal tuft is seen. After IV contrast infusion, there is enhancement within 1st proximal and distal phalanges. No other area of abnormal marrow signal. No acute fracture or dislocation. No metatarsal stress fractures. Mild forefoot joint osteoarthritic changes are noted. No suspicious bony lesions. No other area of abnormal intraosseous enhancement. Soft tissues: Soft tissue edema and swelling surrounding distal portion of 1st toe with ulceration over plantar aspect of 1st distal phalanx. No discrete drainable abscess collection. No gross plantar foot muscle signal abnormality. No area of abnormal intramuscular enhancement. Extensor and flexor tendons are grossly intact. IMPRESSION: 1. Ulceration involving plantar aspect of distal great toe with significant cellulitis surrounding great toe. No discrete drainable abscess collection. 2. Osteomyelitis involving 1st proximal and distal phalanges with erosive changes involving 1st distal phalanx. No fracture or dislocation. Mild forefoot joint osteoarthritis. No other area of abnormal intraosseous enhancement. 3. Extensor and flexor tendons are grossly intact. No abnormal plantar foot muscle signal. No enhancing soft tissue mass or drainable fluid collection. Dictated by: Stas Cummings M.D. on 03/13/2025 at 2:42 Approved by: Stas Cummings M.D. on 03/13/2025 at 2:45
== END ==
PROVIDERS: PCP Family Medicine; Referring Provider Internal Medicine Infectious Disease; Visit Provider Internal Medicine Infectious Disease
DX: L97.519 Non-pressure chronic ulcer of other part of right foot with unspecified severity (principal); M86.8X7 Other osteomyelitis, ankle and foot; L03.031 Cellulitis of right toe; M19.071 Primary osteoarthritis, right ankle and foot; T14.8XXA Other injury of unspecified body region, initial encounter
CPT/HCPCS: 73720; A9579

== ENCOUNTER → 2025-03-15 08:44 | Outpatient (CLI) | payer OTHER, SELFPAY | LOC: WC 08:45 | PROVIDERS: PCP Family Medicine; Referring Provider Family Medicine; Visit Provider Surgery | DX: E11.621 Type 2 diabetes mellitus with foot ulcer (principal); E11.42 Type 2 diabetes mellitus with diabetic polyneuropathy; L97.512 Non-pressure chronic ulcer of other part of right foot with fat layer exposed; M86.171 Other acute osteomyelitis, right ankle and foot; L84 Corns and callosities; E66.01 Morbid (severe) obesity due to excess calories; Z68.35 Body mass index [BMI] 35.0-35.9, adult; F17.210 Nicotine dependence, cigarettes, uncomplicated | CPT/HCPCS: 11042 ==

== ENCOUNTER → 2025-03-21 08:40 | Outpatient (CLI) | payer OTHER, SELFPAY | PROVIDERS: PCP Family Medicine; Referring Provider Family Medicine; Visit Provider Surgery | DX: E11.621 Type 2 diabetes mellitus with foot ulcer (principal); E11.42 Type 2 diabetes mellitus with diabetic polyneuropathy; L97.518 Non-pressure chronic ulcer of other part of right foot with other specified severity; M86.171 Other acute osteomyelitis, right ankle and foot; E66.01 Morbid (severe) obesity due to excess calories; Z68.35 Body mass index [BMI] 35.0-35.9, adult; Z72.0 Tobacco use | CPT/HCPCS: 11042; 99213 ==

== ENCOUNTER 2025-03-25 09:58 | Day surgery (SDC) | payer OTHER, SELFPAY ==
[2025-03-24 08:08] VITALS: BMI 35.6
--- NOTE | 2025-03-25 | PATH_ITS ---
[facility] Accession Number: [id number] No. of containers..01 Tissue . 01 Material submitted: . toe - RIGHT GREAT TOE . 01 Diagnosis: RIGHT GREAT TOE, AMPUTATION: Skin and underlying fibroconnective tissue with necrosis and mildly inflamed granulation tissue, consistent with ulcer. Underlying bone with evidence of remodeling and interspersed marrow with mild fibrosis and reactive changes. No evidence of ostemyelitis. Skin and soft tissue resection margins are viable. Articular bone margin is viable and negative for osteomyelitis. [facility] 03/31/2025 1148 Local . 01 Electronically signed: . Mariluz Gonzalez MD, Pathologist NPI- [id number] . 01 Gross description: . Received in formalin, labeled with two identifiers and right great big toe, is a disarticulated digit measuring 7.2 cm in length by 3.5 cm in diameter with mendez wrinkled skin and a mendez unremarkable nail bed. An ulcerated lesion with grossly visible soft tissue measures 2.6 x 1.6 cm and is located on the plantar aspect of digit, 0.3 cm from the nearest soft tissue margin. The soft tissue margin is inked blue while the articular surface is inked orange. Sectioning reveals pink-mendez soft tissue and mendez trabecular osseous tissue that cannot be sectioned with a scalpel. Seamstress Fitter sections are submitted as follows: A1-A2: Soft tissue margin en face. A3: Articular surface en face. A4: Lesion with underlying bone. Specimen decalcified. ([id number]) /[facility] 03/26/2025 1727 Local . 01 Pathologist provided ICD-10: E11.621, L97.512, E11.42 . 01 CPT . 895628, 854044 Specimen Comment: A courtesy copy of this report has been sent to [phone] Performed at: [address] [facility], [place], [place] [id number] MD Michael Falcon MD Phone: [phone]
[2025-03-25 10:22] VITALS: BP 141/94; PULSE 89; RESP 16; TEMP 36.2; O2SAT 98; BMI 35.6
[2025-03-25] MEDS: SCOPOLAMINE 1 PATCH TOP (10:29)
[2025-03-25] MEDS: ACETAMINOPHEN 325 MG TABLET 975 MG PO (10:33)
[2025-03-25] MEDS: LACTATED RINGERS 1,000 ML 42 ML IV (10:36)
--- NOTE | 2025-03-25 10:41 | PM.PREOP ---
Pre-operative Note Interval Note History & Physical reviewed/Exam performed by Physician: Yes Changes to H&P: No
--- NOTE | 2025-03-25 10:42 | PM.OP.1 ---
Operative Date/Time/Diagnoses Date of procedure: 03/25/25 Time of procedure: 10:42 Pre-op diagnosis: Right plantar hallux wound, suspect osteomyelitis Post-op diagnosis: same Procedure & Clinicians Procedure: Right first metatarsophalangeal joint amputation Same procedure as scheduled: Yes Indications: 39-year-old male diabetic with ongoing full-thickness wound to the bottom of the right great toe. Numerous attempts at conservative measures have failed to alleviate the condition and unfortunately there are signs of suspected osteomyelitis in the bones of the great toe. We discuss options for care and alternatives to the procedure today and he would like to move ahead with the right 1st metatarsophalangeal joint amputation. We discussed the risks and benefits associated with this as well as expected outcomes and potential complications. Consent was signed and there were no contraindications to the procedure at this time. Of note, I discussed his condition with Dr. Brown today and she was able to secure at home infusion services for antibiosis starting tomorrow, and a midline iv access was placed pre-operatively today for that purpose. Surgeon: Heide Reza Click Yes if Unassisted: Yes Anesthesia Type: General Operative Notes Findings: See Procedure for details. Closure Type: primary Specimen(s): other (1) Right great toe sent to Pathology for identification, question osteomyelitis. 2) Culture/gram stain from tissue swab first metatarsal head sent to microbiology.) Estimated Blood Loss (mL): 20 Blood products transfused: none Procedure in detail: The patient was brought to the operating room and placed on the operating table in the supine position. Well-padded and appropriately supported. After induction of general anesthesia the right foot and ankle were prepped and draped in the usual aseptic manner. After check of anesthesia, a full-thickness circumferential incision was made around the hallux to include the plantar ulceration. This was then extended dorsally going proximally linearly to the metatarsophalangeal joint. The toe was carefully disarticulated and passed from the field to be sent to pathology for identification. The base of the proximal phalanx showed a clean articulation point of cartilage and no necrosis within the deeper portions of soft tissues or into the bone. The 1st metatarsal head was of noted to be clean and without necrosis. There were some superficial linear junior on the very central aspect of this cartilage, but on closer examination this looks like it could have been from the surgical act of disarticulation of the soft tissue/bone at the joint as this was a very, very tight contracture. No tracking or abscesses, no purulence. The culture swab was taken from the first metatarsal head. The area was irrigated with copious amounts of normal sterile saline. Skin and tissue was revised to allow for appropriate closure. Vessels were cauterized and ligated as necessary. Vicryl was used deeply for closure and nylon for the skin. The area was dressed with a sterile lightly compressive dressing. Complications: none Post-operative Condition: stable Disposition: PACU Plan for aftercare: Following a period of postoperative monitoring, the patient will be discharged to home on written and oral postoperative instructions including keeping the dressing dry and intact, no weight to the surgical foot, elevating the foot when seated home. DVT prevention techniques have been reviewed. For the 1st postoperative visit the dressing will be changed and close to the 3rd postoperative week we will likely remove the sutures. I will send in post operative pain medication for him today and discussed this along with his infusion services starting tomorrow with his on the phone.
--- NOTE | 2025-03-25 11:29 | SUR.OPER ---
Supine on padded OR bed, head on pillow, arms secured on padded arm boards at <90 degrees abduction, legs uncrossed, safety belt at thigh, tape over blanket over lower legs. Bump under right hip.
[2025-03-25] MEDS: BUPIVACAINE 0.5% (PF) 30 ML VIAL INJ (11:34)
[2025-03-25] MEDS: ERTAPENEM 1 GM in SODIUM CHLORIDE 0.9% 100 ML IV (11:43)
[2025-03-25 12:24] VITALS: BP 129/81; PULSE 91; RESP 14; TEMP 36.6; O2SAT 97
[2025-03-25 12:29] VITALS: BP 128/61; PULSE 86; RESP 16; O2SAT 95
[2025-03-25 12:34] VITALS: BP 128/84; PULSE 88; RESP 14; O2SAT 98
[2025-03-25 12:49] VITALS: BP 131/81; PULSE 88; RESP 16; O2SAT 95
[2025-03-25 12:52] LABS: Add Manual Diff / Slide Review NO; Basophils Absolute Auto 100 /uL (0-100); Basophils Percent Auto 0.8 % (0-2); Eosinophils Absolute Auto 600 /uL (0-450); Eosinophils Percent Auto 4.9 % (2-4); Hematocrit 42.9 % (41-53); Hemoglobin 14.6 g/dL (13.5-17.5); Lymphocytes Absolute Auto 2100 /uL (1100-4500); Lymphocytes Percent Auto 18.2 % (25-40); Mean Corpuscular Hemoglobin 28.7 PG (26-34); Mean Corpuscular Volume 84.3 fL (80-100); Monocytes Absolute Auto 800 /uL (0-900); Neutrophils Absolute Auto 8100 /uL (1500-7000); Neutrophils Percent Auto 69.1 % (50-75); Platelet Count 311 X10^3/uL (150-400); Red Blood Cell Count 5.09 X10^6/uL (4.5-5.9); White Blood Cell Count 11.7 X10^3/uL (4.5-11.0)
[2025-03-25 13:03] LABS: Alanine Aminotransferase 28 IU/L (<50); Albumin Globulin Ratio 1.4 (1.0-2.8); Alkaline Phosphatase 58 U/L (38-126); Aspartate Aminotransferase 26 IU/L (17-59); BUN Creatinine Ratio 23.6 (6-22); Bilirubin Total 1.3 mg/dL (0.2-1.3); Blood Urea Nitrogen 17 mg/dL (9-20); Calcium 8.4 mg/dL (8.4-10.2); Carbon Dioxide 25 mmol/L (22-32); Chloride 103 mmol/L (98-107); Estimated Glomerular Filt Rate > 60 mL/min (>60); Globulin 2.8 g/dL (1.7-4.1); Glucose 122 mg/dL (70-99); HEMOLYSIS 16 (0-50); Potassium 4.3 mmol/L (3.4-5.1); Sodium 135 mmol/L (137-145); Total Protein 6.8 g/dL (6.3-8.2)
== END 2025-03-25 13:10 | disposition home or self-care (01) ==
PROVIDERS: PCP Family Medicine; Referring Provider Podiatrist; Visit Provider Podiatrist
PROC: (CPT 28820; principal; 2025-03-25 14:45)
DX: E11.621 Type 2 diabetes mellitus with foot ulcer (principal); L97.512 Non-pressure chronic ulcer of other part of right foot with fat layer exposed; E11.42 Type 2 diabetes mellitus with diabetic polyneuropathy; I10 Essential (primary) hypertension; E78.5 Hyperlipidemia, unspecified; E66.9 Obesity, unspecified; Z68.34 Body mass index [BMI] 34.0-34.9, adult; Z79.84 Long term (current) use of oral hypoglycemic drugs; Z87.891 Personal history of nicotine dependence
CPT/HCPCS: 28820; 80053; 85025; 87070; 87075; 87205; J1335; J1642; J2250; J2405; J2704; J3010

== ENCOUNTER 2025-09-04 17:00 | Emergency (ER) | payer BC, SELFPAY ==
[2025-09-04 17:03] VITALS: BP 175/113; PULSE 104; RESP 18; TEMP 36.1; O2SAT 97; BMI 39.9
[2025-09-04 20:17] VITALS: BP 172/103; PULSE 90; RESP 20; TEMP 36.4; O2SAT 97
[2025-09-04 21:21] VITALS: BP 183/101; PULSE 93; RESP 19; O2SAT 97
[2025-09-04 21:23] VITALS: BP 168/100
--- NOTE | 2025-09-04 21:30 | ED.BACK ---
HPI - Back Pain/Injury General Chief Complaint: Back Pain/Injury Stated Complaint: back pain Time Seen by Provider: 09/04/25 18:26 Source: patient History of Present Illness HPI Narrative: 39-year-old gentleman presents with right-sided low back pain started yesterday and goes down the buttocks. He has a history of sciatica on the left side for which he feels the same on the right side now. Patient reports going to walk-in clinic a few weeks ago placed on steroids and given Toradol shot which helped briefly. He denies any recent heavy lifting, trauma to the area, numbness, tingling down the legs, toes, or gait instability. Other than what is stated 14 point review of system is negative. Related Data Home Medications ?Medication ?Instructions ?Recorded ?Confirmed cefadroxil 500 mg capsule 1,000 mg PO BID 10/11/24 07/04/25 Previous Rx's ?Medication ?Instructions ?Recorded blood sugar diagnostic (Blood #100 ea 01/18/21 Glucose Test strips) blood-glucose meter #1 ea 01/18/21 lancets (Comfort Lancets) #100 ea 01/18/21 nicotine 7 mg/24 hr daily 1 patch transdermal Q24H #7 ea 11/15/24 transdermal patch atorvastatin 20 mg tablet 20 mg PO QPM #90 tabs 12/31/24 bupropion HCl 150 mg 24 hr tablet, 300 mg (2 x 150 mg) PO DAILY #180 12/31/24 extended release tabs lisinopril 20 mg tablet 20 mg PO DAILY #90 tabs 12/31/24 metformin 1,000 mg tablet 1,000 mg PO BID #180 tabs 12/31/24 rosuvastatin 20 mg tablet 20 mg PO DAILY #90 tabs 07/04/25 semaglutide 0.25 mg or 0.5 mg (2 0.25 mg (0.368 mL) SUBCUT .COMPLEX 08/19/25 mg/3 mL) subcutaneous pen injector #3 mL (Ozempic) semaglutide 1 mg/dose (4 mg/3 mL) 1 mg (0.75 mL) SUBCUT .COMPLEX #3 08/19/25 subcutaneous pen injector (Ozempic) mL semaglutide 2 mg/dose (8 mg/3 mL) 2 mg (0.75 mL) SUBCUT QWEEK #9 mL 08/19/25 subcutaneous pen injector (Ozempic) Held on 08/19/25. Instructions: need to re-start dosing after being off or 3 weeks Allergies Allergy/AdvReac Type Severity Reaction Status Date / Time coconut AdvReac Intermediate itchy Verified 09/04/25 17:02 throat Iodinated Contrast Media AdvReac Intermediate wrist Verified 09/04/25 17:02 swelling Review of Systems Review of Systems ROS Unobtainable: All systems reviewed & are unremarkable except as noted in HPI and below Patient History Medical History (Updated 07/04/25 @ 21:10 by Celine Houser MD) Tooth sensitivity Tobacco use disorder, mild, in early remission Elevated creatine kinase Type 2 diabetes mellitus Hyperlipidemia associated with type 2 diabetes mellitus Essential hypertension Morbid obesity (03/29/03) Attention deficit disorder with hyperactivity (03/29/03) Social History household members: spouse Smoking Status: Former smoker alcohol intake: never Smoking Status: Former smoker tobacco type: cigarettes alcohol intake frequency: 0-2 drinks per day Exam Narrative Exam Narrative: GENERAL: [39] year old patient appears stated age. Well-developed patient, in mild distress. HEAD: Atraumatic. Normocephalic. EYES: Pupils equal round and reactive. Extraocular motions intact. No scleral icterus. No injection or drainage. EXTREMITIES: No edema or joint tenderness. BACK: R paralumbosacral region TTP without deformity or crepitance. No flank tenderness. NEURO: AOx3. SKIN: No rash or erythema of visible areas Initial Vital Signs Initial Vital Signs: Vital Signs Temperature 97.0 F L 09/04/25 17:03 Pulse Rate 104 H 09/04/25 17:03 Respiratory Rate 18 09/04/25 17:03 Blood Pressure 175/113 H 09/04/25 17:03 Pulse Oximetry 97 09/04/25 17:03 Oxygen Delivery Method Room Air 09/04/25 17:03 Procedures [facility] [place] Procedure Name of Procedure: R sided lumbosacral trigger point injection Side (if applicable): right Time out performed: Yes Technique/Description of procedure performed: patient draped and prepped in a sterile fashion. using 22-1-1/2 gauge needle consisting of Kenalog 40 mg 1 mL in lidocaine 2% without epi 9ml - using 3ml at L4, L 5 and 4ml at S1. patient tolerated procedure with no complication. Patient tolerated procedure: Well and No complications Course Orders Ordered: ED Orders 09/04/25 22:51 CT abdomen pelvis w con Stat Discontinued Medications Hydrocodone Bitart/Acetaminophen (Hydrocodone/Acet 5/325 Tablet) 1 tab PO NOW ONE Stop: 09/04/25 21:35 Last Admin: 09/04/25 21:45 Dose: 1 tab Documented By: AB Ibuprofen (Ibuprofen 400 Mg Tablet) 800 mg PO NOW ONE Stop: 09/04/25 21:35 Last Admin: 09/04/25 21:44 Dose: 800 mg Documented By: AB Lidocaine HCl (Lidocaine 2% Inj Mdv 20ml) 20 ml INJ INTRA-OP ONE Stop: 09/04/25 21:34 Last Admin: 09/04/25 21:45 Dose: 20 ml Documented By: AB Triamcinolone (Triamcinolone 40 Mg/Ml Vial) 40 mg INJ NOW ONE Stop: 09/04/25 21:34 Last Admin: 09/04/25 21:45 Dose: 40 mg Documented By: AB Vital Signs Vital signs: Vital Signs - 8 hr 09/04/25 17:03 09/04/25 20:17 09/04/25 21:21 Temperature 97.0 F L 97.5 F L Pulse Rate 104 H 90 93 H Respiratory Rate 18 20 19 Blood Pressure 175/113 H 172/103 H 183/101 H Pulse Oximetry 97 97 97 Oxygen Delivery Method Room Air Room Air Room Air 09/04/25 21:23 09/04/25 22:30 09/04/25 22:45 Temperature Pulse Rate 96 H 97 H Respiratory Rate 20 22 Blood Pressure 168/100 H 162/115 H Pulse Oximetry 97 98 Oxygen Delivery Method Room Air Room Air MDM - Back Pain/Injury Lab Data Labs: Lab Results 09/04/25 Range/Units 23:00 POC Whole Bld Glucose 220 H (70-99) mg/dL Point of Care Testing Glucose POC [address] scan - abdomen/pelvis: Radiologist's Impression: [address] [address] [address] Scan Report Signed Patient: Nirmal López MR#: [id number] : 1985 Acct:[id number] Age/Sex: 39 / M Date of Service: 09/04/25 Loc: ED Accession Number: [id number] Procedure: CT abdomen pelvis w con Ordering Provider: Joseph Arora D.O. PROCEDURE: CT ABDOMEN PELVIS W CON INDICATIONS: abd pain / back pain TECHNIQUE: After the administration of intravenous contrast, axial sections acquired from the lung bases to the pubic symphysis. Coronal and sagittal reformats were performed. For radiation dose reduction, the following was used: automated exposure control, adjustment of mA and/or kV according to patient size. COMPARISON: [facility], CT, CT ABDOMEN PELVIS W CON, 10/14/2022, 20:39. FINDINGS: Image quality: Diagnostic. Lower Chest: No significant findings. ABDOMEN: Liver: No solid mass. Hepatic steatosis Gallbladder: No radiopaque gallstones or wall thickening. Biliary ducts: No biliary dilation. Pancreas: No ductal dilation. Spleen: Size is within normal limits. Adrenal Glands: No adrenal nodules. Kidneys and Ureters: No hydronephrosis. No solid mass. No complex renal cystic lesion which requires follow up. Stomach and Bowel: Normal colonic caliber, without significant wall thickening. Status post appendectomy Peritoneum: No abnormal intraperitoneal fluid. No free air. Ventral Wall: No significant ventral hernia. Abdominal Nodes: No retroperitoneal or mesenteric adenopathy by size criteria. Vessels: Aorta and inferior vena cava are normal in size. PELVIS: Pelvic Organs: Unremarkable. Bladder: No bladder wall thickening, accounting for underdistention. Pelvic Nodes: No enlarged lymph nodes. Miscellaneous: Small bilateral fat containing inguinal hernias are seen. Bones: No aggressive osseous abnormality. Multilevel degenerative changes. IMPRESSION: Status appendectomy. No acute abdominopelvic process identified. Hepatic steatosis. Approved by: Luh Costa M.D.,Ph.D. on 09/05/2025 at 0:23 MDM Narrative Medical decision making narrative: All lab work, vital signs, nurse triage note, medication list, previous ER visits and all imaging studies reviewed. patient given ibuprofen, [place], flexeril, solumedrol here and also trigger point injection. CT abdomen and pelvis with bone windows shows status post appendectomy no acute abdominal pelvic process identified hepatic steatosis bones showed multilevel degenerative changes. differential diagnosis sciatica, piriformis syndrome, arthritis, herniated disc, spondylolisthesis, spondylosis. D/c home on norco, prednisone and flexeril rx. Discharge Plan Departure Prescriptions: No Action cefadroxil 500 mg capsule 1,000 mg PO BID rosuvastatin 20 mg tablet 20 mg PO DAILY Qty: 90 4RF nicotine 7 mg/24 hr patch 24 hour 1 patch transdermal Q24H Qty: 7 2RF metformin 1,000 mg tablet 1,000 mg PO BID Qty: 180 5RF lisinopril 20 mg tablet 20 mg PO DAILY Qty: 90 5RF bupropion HCl 150 mg tablet extended release 24 hr 300 mg PO DAILY Qty: 180 2RF atorvastatin 20 mg tablet 20 mg PO QPM Qty: 90 4RF (DME) blood-glucose meter Misc See Rx Instructions .ROUTE .MEDSUPPLY Qty: 1 0RF Rx Instructions: Use to check blood sugar at least once daily (DME) Blood Glucose Test Strip See Rx Instructions .ROUTE .MEDSUPPLY Qty: 100 0RF Rx Instructions: Use to check blood sugar at least once daily (DME) lancets [Comfort Lancets] Misc See Rx Instructions .ROUTE .MEDSUPPLY Qty: 100 0RF Rx Instructions: As directed Ozempic 2 mg/dose (8 mg/3 mL) pen injector 2 mg SUBCUT QWEEK Qty: 9 1RF Rx Instructions: prior authorization obtained, good from 08/19/25-08/19/26 Ozempic 0.25 mg or 0.5 mg (2 mg/3 mL) pen injector 0.25 mg SUBCUT .COMPLEX Qty: 3 0RF Rx Instructions: inject 0.25 mg subcutaneously once weekly for two weeks, then go to 0.5mg once weekly for 2 weeks-Need to start dosing over again since he's been off for 3 weeks Ozempic 1 mg/dose (4 mg/3 mL) pen injector 1 mg SUBCUT .COMPLEX Qty: 3 0RF Rx Instructions: inject 1 mg subcutaneously once weekly for 2 weeks, then can go back to original dosing of 2mg once weekly-had to re-start dosing after being off med for 3 weeks Referrals: Celine Houser MD [Primary Care Provider, Family Practice] Stand Alone Forms: Work Release Note
[2025-09-04] MEDS: IBUPROFEN 400 MG TABLET 800 MG PO (21:44)
[2025-09-04] MEDS: LIDOCAINE 2% INJ MDV 20ML 20 ML INJ (21:45)
[2025-09-04] MEDS: TRIAMCINOLONE 40 MG/ML VIAL INJ (21:45)
[2025-09-04 22:30] VITALS: PULSE 96; RESP 20; O2SAT 97
[2025-09-04 22:45] VITALS: BP 162/115; PULSE 97; RESP 22; O2SAT 98
--- NOTE | 2025-09-04 22:51 | DI.CT.S_ITS ---
PROCEDURE: CT ABDOMEN PELVIS W CON INDICATIONS: abd pain / back pain TECHNIQUE: After the administration of intravenous contrast, axial sections acquired from the lung bases to the pubic symphysis. Coronal and sagittal reformats were performed. For radiation dose reduction, the following was used: automated exposure control, adjustment of mA and/or kV according to patient size. COMPARISON: [facility], CT, CT ABDOMEN PELVIS W CON, 10/14/2022, 20:39. FINDINGS: Image quality: Diagnostic. Lower Chest: No significant findings. ABDOMEN: Liver: No solid mass. Hepatic steatosis Gallbladder: No radiopaque gallstones or wall thickening. Biliary ducts: No biliary dilation. Pancreas: No ductal dilation. Spleen: Size is within normal limits. Adrenal Glands: No adrenal nodules. Kidneys and Ureters: No hydronephrosis. No solid mass. No complex renal cystic lesion which requires follow up. Stomach and Bowel: Normal colonic caliber, without significant wall thickening. Status post appendectomy Peritoneum: No abnormal intraperitoneal fluid. No free air. Ventral Wall: No significant ventral hernia. Abdominal Nodes: No retroperitoneal or mesenteric adenopathy by size criteria. Vessels: Aorta and inferior vena cava are normal in size. PELVIS: Pelvic Organs: Unremarkable. Bladder: No bladder wall thickening, accounting for underdistention. Pelvic Nodes: No enlarged lymph nodes. Miscellaneous: Small bilateral fat containing inguinal hernias are seen. Bones: No aggressive osseous abnormality. Multilevel degenerative changes. IMPRESSION: Status appendectomy. No acute abdominopelvic process identified. Hepatic steatosis. Approved by: Luh Costa M.D.,Ph.D. on 09/05/2025 at 0:23
--- NOTE | 2025-09-04 23:01 | PC.NURSE ---
Patient rings call light in 3D. Patient pacing room, diaphoretic and reports pain is 9/10. He goes down to one knee to try and reposition for comfort. Able to stand back up. Reports extreme pain with certain positions such as sitting. Vitals rechecked. Provider Ulysses and primer charger Radha made aware of patient presentation and complaints. New verbal order to start IV from provider Ulysses. Patient moved to room 10. IV started by this RN and report given to JONATHAN Moran.
[2025-09-05] MEDS: CYCLOBENZAPRINE 10 MG TABLET PO (00:49)
[2025-09-05] MEDS: methylPREDNISolone succ 125 MG/2 ML VIAL IV (00:49)
[2025-09-05 01:03] VITALS: BP 165/106; PULSE 87; RESP 18; O2SAT 96
== END 2025-09-05 01:04 | disposition home or self-care (01) ==
PROVIDERS: Emergency Provider Family Medicine; PCP Family Medicine
DX: M54.41 Lumbago with sciatica, right side (principal)
CPT/HCPCS: 20553; 74177; 82962; 96374; 99284; J2919

== ENCOUNTER → 2025-09-14 07:37 | Outpatient (CLI) | payer BC, SELFPAY ==
[2025-09-14 08:49] LABS: Hemoglobin A1C% w Est Avg Glu 9.4 % (4.0-6.0)
[2025-09-14 09:01] LABS: Cholesterol 156 mg/dL (140-199); Creatine Kinase 265 U/L (55-170); HDL Cholesterol 54 mg/dL (40-60); Triglycerides 299 mg/dL (35-150)
== END ==
PROVIDERS: PCP Family Medicine; Referring Provider Family Medicine; Visit Provider Family Medicine
DX: E78.5 Hyperlipidemia, unspecified (principal); R74.8 Abnormal levels of other serum enzymes; E11.9 Type 2 diabetes mellitus without complications
CPT/HCPCS: 36415; 80061; 82550; 83036

== ENCOUNTER → 2025-09-23 07:40 | Outpatient (CLI) | payer BC, SELFPAY ==
--- NOTE | 2025-09-23 07:42 | DI.MRI.S_ITS ---
PROCEDURE: MR LUMBAR SPINE WO CON INDICATIONS: sciatica acute, worsening TECHNIQUE: Noncontrast sagittal T1 spin echo and T2 fast echo, sagittal STIR, and T2 fast spin echo through the lumbar spine. In cases with scoliosis, additional coronal T2 fast spin echo may be performed. COMPARISON: None. FINDINGS: Image quality: Excellent Straightening of the lumbar spine. Mild levoscoliosis of the lumbar spine, centered at L3-4. Mild retrolisthesis of L4 on L5. Vertebral body height of the lumbar spine are well maintained. Mixed fiber fatty and fibrovascular end plate change at L4-5. Multilevel disc bulge and disc desiccation. Conus terminates at the level of L1-2, and is unremarkable. Right neural foraminal stenosis: Mild at T11-T12, moderate at L3-4, L4-5, severe at L5-S1. Left neural foraminal stenosis: Moderate at L3-4, L4-5, and L5-S1. Axial images: T12-L1: Central disc protrusion, resulting in mass effect on the ventral cord and mild central canal stenosis. Mild bilateral facet arthropathy. L1-2: No central canal stenosis. L2-3: Mild bilateral facet arthropathy. No central canal stenosis. L3-4: Moderate bilateral facet arthropathy. Disc bulge. Epidural lipomatosis. Moderate central canal stenosis. L4-5: Large central disc extrusion at the level of L4, likely extending from the L4-5 intervertebral disc, or less likely from the L3-4 intervertebral disc. This results in severe central canal stenosis. Mild bilateral facet arthropathy L5-S1: Mild bilateral facet arthropathy. Disc bulge, superimposed on central disc protrusion. No central canal stenosis. Visualized sacrum is intact. Small nodularity of the left adrenal gland. IMPRESSION: 1. Large central disc extrusion at L4, resulting in severe central canal stenosis. 2. Additional significant neural foraminal stenosis described above. Dictated by: Michell Teran M.D. on 09/23/2025 at 12:36 Approved by: Michell Teran M.D. on 09/23/2025 at 12:49
== END ==
LOC: MRI 07:41
PROVIDERS: PCP Family Medicine; Referring Provider Family Medicine; Visit Provider Family Medicine
DX: M51.16 Intervertebral disc disorders with radiculopathy, lumbar region (principal); M51.17 Intervertebral disc disorders with radiculopathy, lumbosacral region; M47.26 Other spondylosis with radiculopathy, lumbar region; M47.27 Other spondylosis with radiculopathy, lumbosacral region; M48.061 Spinal stenosis, lumbar region without neurogenic claudication; R53.1 Weakness
CPT/HCPCS: 72148